=== PATIENT | male | born 1965 | race Caucasian/White ===

== ENCOUNTER → 2017-10-03 11:42 | Outpatient (CLI) | payer MEDICAID, SELFPAY ==
--- NOTE | 2017-10-03 11:54 | XR_ITS ---
XR chest 2V HISTORY: ITS.REASON: PNEUMONIA ORDERING PHYSICIAN: PADMINI Amor PATIENT AGE: 52 years COMPARISON: 01/08/2013 FINDINGS: Unremarkable cardiovascular structures. COPD with hyperinflation and coarsening of the bronchovascular markings. Patchy density is present in the left lower lobe consistent with pneumonia. There is a small area of increased markings in the right lung base probably related to summation artifact may be confirmed with follow-up. IMPRESSION: COPD with left lower lobe pneumonia. Suggest follow until clear in this patient which is a current smoker
== END ==
PROVIDERS: PCP Physician Assistant; Visit Provider Physician Assistant
DX: J18.9 Pneumonia, unspecified organism (principal)
CPT/HCPCS: 71046; 87070; 87205

== ENCOUNTER → 2018-09-11 11:43 | Outpatient (CLI) | payer BC, SELFPAY ==
--- NOTE | 2018-09-11 11:51 | XR_ITS ---
XR shoulder RT min 2V HISTORY: ITS.REASON: ACUTE PAIN OF RIGHT SHOULDER ORDERING PHYSICIAN: PADMINI Amor PATIENT AGE: 53 years Comparison: None FINDINGS: No fracture or dislocation. No lytic or blastic change. There is normal mineralization. The joint spaces are well-preserved. No significant degenerative/arthritic changes. No erosive changes evident. IMPRESSION: Negative, no acute finding
== END ==
PROVIDERS: PCP Physician Assistant; Visit Provider Physician Assistant
DX: M25.511 Pain in right shoulder (principal)
CPT/HCPCS: 73030

== ENCOUNTER 2021-08-28 14:31 | Emergency (ER) | payer BC, SELFPAY ==
[2021-08-28] VITALS (8 sets, daily range): BP systolic 136–188; BP diastolic 89–110; PULSE 10–101; RESP 12–19; TEMP 37.1; O2SAT 98–99; BMI 19.5
--- NOTE | 2021-08-28 14:48 | ECG_ITS ---
APPROVED REPORT Exam: Resting ECG HR:107 bpm ECG Measurements Heart Rate 107 AXES IL 112 P 84 QRSd 104 QRS 95 QT 334 T 78 QTc 397 Conclusion SINUS TACHYCARDIA WITH SHORT IL INTERVAL BORDERLINE RIGHT AXIS DEVIATION [QRS AXIS > 90] ABNORMAL RHYTHM ECG UNCONFIRMED REPORT Electronically signed by : John Cruz MD 08/29/2021 14:00:39
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
--- NOTE | 2021-08-28 15:17 | PC.NURSE ---
pt to CT with lead cytogenetic technologist via stretcher
[2021-08-28 15:25] LABS: Basophils # 0.1 K/mm3 (0-0.2); Eosinophils # 0.1 K/mm3 (0.0-0.4); Eosinophils % 0.9 % (0.1-12.0); Hematocrit 47.9 % (42.0-52.0); Hemoglobin 15.3 g/dL (14.1-18.0); Lymphocytes # 1.3 K/mm3 (0.7-4.5); Lymphocytes % 10.9 % (10-50); Mean Corpuscular HGB Conc 31.8 g/dL (31.8-35.4); Mean Corpuscular Hemoglobin 33.8 pg (27.0-31.2); Mean Corpuscular Volume 106.2 fl (80-94); Monocytes # 0.4 K/mm3 (0.1-1.0); Monocytes % 3.3 % (1.7-9.3); Neutrophils # 9.8 K/mm3 (1.8-7.8); Neutrophils % 83.7 % (37.0-80.0); Platelet Count 262 K/mm3 (142-424); Red Blood Count 4.51 M/mm3 (4.60-6.20); Red Cell Distribution Width 13.4 % (11.5-17.5); White Blood Count 11.7 K/mm3 (4.8-10.8)
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
[2021-08-28 15:44] LABS: Alanine Aminotransferase 25 U/L (12-78); Albumin Level 3.8 g/dl (3.5-5.0); Albumin/Globulin Ratio 1.3 (1.1-1.8); Alkaline Phosphatase 83 U/L (38-126); Anion Gap 10.8 mEq/L (5-15); Aspartate Amino Transferase 40 U/L (17-59); Bilirubin,Total 0.2 mg/dl (0.2-1.3); Blood Urea Nitrogen 5 mg/dl (9-20); Calcium 8.6 mg/dl (8.4-10.2); Carbon Dioxide 24 mmol/L (22.0-30.0); Chloride 104 mmol/L (98-107); Creatinine Clearance Estimated 105 mL/min (50-200); Estimated Glomerular Filt Rate 116 ml/min (>60); GFR (African American) 141 ML/MIN (>60); Glucose 109 mg/dl (74-100); Potassium 3.8 mmoL/L (3.5-5.1); Sodium 135 mmol/L (136-145); Total Protein,Serum 6.8 g/dl (6.3-8.2)
--- NOTE | 2021-08-28 15:53 | PC.NURSE ---
Pt returned from rad. Warm blankets provided. No other needs at this time.
--- NOTE | 2021-08-28 15:53 | PC.NURSE ---
pt returned from CT via stretcher with MYRTLE smith; family at BS
[2021-08-28 16:14] LABS: Ethyl Alcohol 69 mg/dl (0-10)
--- NOTE | 2021-08-28 16:31 | PC.NURSE ---
Notified Beatrice A, RN of patients BP being elevated
--- NOTE | 2021-08-28 16:51 | PC.NURSE ---
Went in and assessed pt and rechecked b/p. pt remains hypertensive, he advises he has a hx of hypertension and is suppose to be on b/p medicine but took himself off of it about 3 months ago. Pt denies any acute pain at this time and advises he feels fine other than some pressure in his head. MD notified of hypertension and pt hx no new orders at this time, he will be in to see him in a bit.
--- NOTE | 2021-08-28 17:01 | PC.NURSE ---
at bedside discussing CT results
--- NOTE | 2021-08-28 17:16 | PC.NURSE ---
contacted [facility] and was told by Colin pt had gotten metoprolol tartrate 50mg daily filled in 2019. pt and family state this is the same dose and it hasn't changed since then.
== END 2021-08-28 17:32 | disposition home or self-care (01) ==
PROVIDERS: Emergency Provider Emergency Medicine; PCP Family Medicine
DX: I10 Essential (primary) hypertension (principal); S20.311A Abrasion of right front wall of thorax, initial encounter; S20.211A Contusion of right front wall of thorax, initial encounter; V59.3XXA Occupant (driver) (passenger) of pick-up truck or van injured in unspecified nontraffic accident, initial encounter
CPT/HCPCS: 70450; 71275; 72125; 72170; 73000; 74177; 80053; 85025; 93005; 99285; Q9967

== ENCOUNTER → 2021-09-12 11:11 | Outpatient (CLI) | payer BC, SELFPAY ==
--- NOTE | 2021-09-12 11:25 | ECG_ITS ---
APPROVED REPORT Exam: Resting ECG HR:85 bpm ECG Measurements Heart Rate 85 AXES IL 127 P 56 QRSd 98 QRS 87 QT 325 T 71 QTc 368 Conclusion SINUS RHYTHM WITH SINUS ARRHYTHMIA NORMAL ECG UNCONFIRMED REPORT Electronically signed by : John Cruz MD 09/13/2021 14:16:10
== END ==
PROVIDERS: PCP Nurse Practitioner Family; Visit Provider Nurse Practitioner Family
DX: R07.9 Chest pain, unspecified (principal)
CPT/HCPCS: 93005

== ENCOUNTER → 2022-04-17 10:33 | Outpatient (CLI) | payer BC, SELFPAY ==
--- NOTE | 2022-04-17 10:42 | XR_ITS ---
FINAL REPORT CLINICAL HISTORY: Right foot pain FINDINGS: AP, oblique and lateral views of the right foot were obtained. There is no prior exam for comparison. There is no acute fracture or dislocation. There is advanced degenerative disease at the 1st tarsometatarsal joint. The remaining joint spaces are preserved. Soft tissues are normal. IMPRESSION: No acute osseous abnormality of the right foot. Prominent degenerative disease of the 1st tarsometatarsal joint. Reviewed, Interpreted and Dictated by Ciera Moses MD Transcribed by Janet Leal Authenticated and [facility]
--- NOTE | 2022-04-17 10:42 | XR_ITS ---
FINAL REPORT CLINICAL HISTORY: Left foot pain FINDINGS: AP, oblique and lateral views of the left foot were obtained. There is no prior exam for comparison. There is no acute fracture or dislocation. The joint spaces are preserved. Soft tissues are normal. IMPRESSION: No acute osseous abnormality of the left foot. Reviewed, Interpreted and Dictated by Ciera Moses MD Transcribed by Janet Leal Authenticated and [facility]
== END ==
PROVIDERS: PCP Family Medicine; Visit Provider Nurse Practitioner Family
DX: M79.671 Pain in right foot (principal); M79.672 Pain in left foot; B35.1 Tinea unguium
CPT/HCPCS: 73630; 87102; 87206; 87220

== ENCOUNTER → 2022-04-17 23:44 | Outpatient (CLI) | payer BC, SELFPAY | PROVIDERS: PCP Family Medicine; Visit Provider Nurse Practitioner Family | DX: M79.671 Pain in right foot (principal) ==

== ENCOUNTER → 2022-09-25 16:27 | Outpatient (CLI) | payer BC, SELFPAY ==
--- NOTE | 2022-09-25 16:32 | XR_ITS ---
FINAL REPORT CLINICAL HISTORY: RIGHT LEG PAIN COMPARISON: None FINDINGS: Two views of the right femur were obtained. There is no acute fracture or dislocation. There are mild hip and knee degenerative changes. Mild vascular calcifications. There is no acute soft tissue abnormality. IMPRESSION: Degenerative changes without acute bony abnormality. Reviewed, Interpreted and Dictated by Job Lima III, MD Transcribed by Heather Harden Authenticated and [facility]
== END ==
LOC: RAD 16:27
PROVIDERS: PCP Nurse Practitioner Family; Visit Provider Nurse Practitioner Family
DX: M79.604 Pain in right leg (principal)
CPT/HCPCS: 73552

== ENCOUNTER 2022-10-18 10:12 | Emergency (ER) | payer BC, SELFPAY ==
[2022-10-18 10:21] VITALS: BP 173/90; PULSE 79; RESP 14; TEMP 36.5; O2SAT 97; BMI 20.2
--- NOTE | 2022-10-18 10:48 | HMH.EDGENADL ---
Discharge Plan Disposition Patient Disposition: Home, Self-Care Prescriptions Prescriptions: New epinephrine [EpiPen 2-Anupam] 0.3 mg/0.3 mL auto-injector 0.3 mg IM Q10M PRN (Reason: anaphylaxis) Qty: 2 0RF Rx Instructions: for 2 doses No Action metoprolol succinate 50 mg tablet extended release 24 hr 50 mg PO Patient Comments: TAKE ONE TABLET BY MOUTH EVERY DAY mecobalamin (vitamin B12) [B12 Active] 1,000 mcg tablet,chewable 1,000 mcg PO DAILY Referrals Follow up/Referrals: Zulema Granados [Primary Care Provider] - See instructions Activity Restrictions/Add. Instructions Additional Instructions/Restrictions: Call your family doctor to establish care for this visit to the emergency department and schedule follow-up within 48 hours to ensure improvement. If you have any worsening of your condition or any other concerning signs or symptoms, return to the emergency department or your primary care doctor for further evaluation. Discontinue taking tramadol. EpiPen has been sent to clinic pharmacy. If you have swelling of your tongue or lips, difficulty breathing, whistling sound in your throat, wheezing, nausea or vomiting, sweating, diffuse rash/hives, lightheadedness, chest pain, shortness of breath, or any other concerns, use EpiPen in outer thigh and immediately return to the ER promptly for further evaluation. These are signs of anaphylaxis. Benadryl 25 mg every 6 hours for the next 24 hours, or cetirizine (Zyrtec)/Claritin to help with symptoms. Clinical Impressions Clinical Impression: Allergic reaction Qualifiers: Encounter type: initial encounter Qualified Code(s): T78.40XA - Allergy, unspecified, initial encounter Instructions Patient Instructions: DI for Skin Abscess Discharge ED Provider: Timothy Lowe General Adult HPI General Chief complaint: Skin/Abscess/Foreign Body Stated complaint: itching, hives, blood pressure up Time Seen by Provider: 10/18/22 10:17 Mode of Arrival: Ambulatory Source of Information: Patient Limitations: No Limitations Description of Symptoms (Recalled from ER Triage Doc. by RN): 57 yo M presents to ED with c/o rash, itching, high blood pressure. pt reports that he got teeth pulled yesterday and was prescribed tramadol. pt reports he has taken 2-3 doses. pt has never taken tramadol before. pt reports he began having itching and rash last night. and this am when he got home from work he checked his blood pressure was elevated at 151/97. History of Present Illness HPI narrative: Is a 57-year-old male with history of COPD currently still smoking, poor dentition status postextraction and expecting dentures presenting with rash. Patient states that he had final 2 teeth extracted 1 day prior to arrival. Was given tramadol over the process of extraction. Initially took tramadol 1 week prior to arrival did not have symptoms. Took tramadol 1 night prior to arrival after extraction. Started having diffuse rash on trunk, chest/back/upper extremities and proximal lower extremities with associated redness. Continues to get worse. Denies nausea, vomiting, diarrhea, GI upset, wheezing, stridor, difficulty breathing, difficulty swallowing, swelling of the tongue or lips. States he felt lightheaded once this morning, but is not currently feeling lightheaded. Presents to the ED for further evaluation Related Data Home Medications Medication Instructions Recorded Confirmed mecobalamin (vitamin B12) 1,000 1,000 mcg PO DAILY 04/17/22 04/17/22 mcg chewable tablet (B12 Active) metoprolol succinate 50 mg 50 mg PO 04/17/22 04/17/22 tablet,extended release 24 hr Previous Rx's Medication Instructions Recorded epinephrine 0.3 mg/0.3 mL 0.3 mg (0.3 mL) IM Q10M PRN 10/18/22 injection, auto-injector (EpiPen anaphylaxis #2 ea 2-Anupam) Allergies Allergy/AdvReac Type Severity Reaction Status Date / Time iopanoic acid Allergy Verified 04/17/22 09:46 [From Tel
[2022-10-18 11:00] VITALS: BP 167/80; PULSE 82; RESP 16; O2SAT 98
[2022-10-18 11:07] VITALS: BP 160/101; PULSE 69; RESP 16; TEMP 36.7
== END 2022-10-18 11:09 | disposition home or self-care (01) ==
PROVIDERS: Emergency Provider Emergency Medicine; PCP Nurse Practitioner Family
DX: L50.9 Urticaria, unspecified (principal); T40.425A Adverse effect of tramadol, initial encounter; J44.9 Chronic obstructive pulmonary disease, unspecified; F17.200 Nicotine dependence, unspecified, uncomplicated
CPT/HCPCS: 99283

== ENCOUNTER 2022-10-19 16:42 | Emergency (ER) | payer BC, SELFPAY ==
--- NOTE | 2022-10-19 16:33 | ECG_ITS ---
APPROVED REPORT Exam: Resting ECG HR:84 bpm ECG Measurements Heart Rate 84 AXES NC 141 P 76 QRSd 97 QRS 91 QT 355 T 67 QTc 397 Conclusion SINUS RHYTHM BORDERLINE RIGHT AXIS DEVIATION [QRS AXIS > 90] BORDERLINE ECG UNCONFIRMED REPORT Electronically signed by : John Cruz MD 10/23/2022 15:59:41
[2022-10-19 16:42] VITALS: BP 182/102; PULSE 84; RESP 19; TEMP 36.8; O2SAT 99; BMI 19.6
--- NOTE | 2022-10-19 17:08 | HMH.EDGENADL ---
Discharge Plan Disposition Chief Complaint: Allergic Reaction Prescriptions Prescriptions: No Action metoprolol succinate 50 mg tablet extended release 24 hr 50 mg PO Patient Comments: TAKE ONE TABLET BY MOUTH EVERY DAY mecobalamin (vitamin B12) [B12 Active] 1,000 mcg tablet,chewable 1,000 mcg PO DAILY epinephrine [EpiPen 2-Anupam] 0.3 mg/0.3 mL auto-injector 0.3 mg IM Q10M PRN (Reason: anaphylaxis) Qty: 2 0RF Rx Instructions: for 2 doses Referrals Follow up/Referrals: Bakari Williamson MD [Staff Physician] - See instructions Activity Restrictions/Add. Instructions Additional Instructions/Restrictions: Follow-up with Dr. Williamson for further evaluation of your syncopal episode. You may need a Holter monitor and/or an ultrasound of your heart to evaluate for possible structural heart disease. Return with any worsening symptoms. Regarding your hives return with any shortness of breath swelling in your tongue or other concerns. Clinical Impressions Clinical Impression: Syncope, Urticarial rash Discharge ED Provider: Jaycee Moscoso General Adult HPI General Chief complaint: Allergic Reaction Stated complaint: Syncope Time Seen by Provider: 10/19/22 17:00 History of Present Illness HPI narrative: 57-year-old male here with a syncopal episode. States he was here yesterday in the emergency department after being on tramadol and developing an urticarial rash without any evidence of anaphylaxis and was given Benadryl. He was discharged in a stable condition with back to work today at [employer] and they told him he had to go home because he was on Benadryl. He was feeling little bit lightheaded and dizzy. Went to go care for his father and his father stated that he had a syncopal episode completely lost consciousness. The patient had preceding prodrome of feeling lightheaded. No chest pain or shortness of breath this was not sudden. He has not had any melena any history of heart failure or any history of arrhythmia no nausea vomiting diarrhea or any other significant medical problems that he is aware of other than hypertension. He is currently without symptoms was brought in by EMS and has been stable. Still has the rash that he states is gotten worse and it is pruritic in nature and diffuse and changing locations no significant wheezing tongue swelling difficulty breathing or GI symptoms. Related Data Home Medications Medication Instructions Recorded Confirmed mecobalamin (vitamin B12) 1,000 1,000 mcg PO DAILY 04/17/22 04/17/22 mcg chewable tablet (B12 Active) metoprolol succinate 50 mg 50 mg PO 04/17/22 04/17/22 tablet,extended release 24 hr Previous Rx's Medication Instructions Recorded epinephrine 0.3 mg/0.3 mL 0.3 mg (0.3 mL) IM Q10M PRN 10/18/22 injection, auto-injector (EpiPen anaphylaxis #2 ea 2-Anupam) Allergies Allergy/AdvReac Type Severity Reaction Status Date / Time iopanoic acid Allergy Verified 04/17/22 09:46 [From [employer]] neosporin Allergy Mild Unknown Uncoded 04/17/22 09:46 allergy reaction [facility] Disclaimer: The information contained in this section may have been updated after the patient was seen, as this information can be updated by other users. Social History (Updated 04/17/22 @ 09:48 by NEWTON Mehta) Smoking Status: Current every day smoker alcohol intake: never current occupational status: employed Travel in the last 8 weeks: None ROS Obtained: Yes All systems reviewed & no additional complaints except as documented Physical Exam General General appearance: alert and in no apparent distress Respiratory Respiratory exam: Present normal lung sounds bilaterally; Absent respiratory distress Cardiovascular Cardiovascular exam: Present regular rate; Absent tachycardia Neurological Exam Neurological exam: Present alert and oriented X3 Skin Skin exam: Present other (Diffuse urticarial rash there is no ev
--- NOTE | 2022-10-19 17:25 | PC.NURSE ---
Rounded on patient; pt re-adjusted in bed for comfort and ice water given that was okay'd by . Call denton within reach
[2022-10-19 17:35] LABS: Basophils % 0.3 % (0.1-2.0); Eosinophils # 0.4 K/mm3 (0.0-0.4); Eosinophils % 4.3 % (0.1-12.0); Hematocrit 52.2 % (42.0-52.0); Hemoglobin 17.2 g/dL (14.1-18.0); Lymphocytes # 1.6 K/mm3 (0.7-4.5); Lymphocytes % 18.5 % (10-50); Mean Corpuscular Hemoglobin 33.4 pg (27.0-31.2); Mean Corpuscular Volume 101.4 fl (80-94); Mean Platelet Volume 8.4 fl (7.4-10.4); Monocytes # 0.6 K/mm3 (0.1-1.0); Neutrophils # 5.9 K/mm3 (1.8-7.8); Neutrophils % 69.9 % (37.0-80.0); Platelet Count 313 K/mm3 (142-424); Red Blood Count 5.15 M/mm3 (4.60-6.20); Red Cell Distribution Width 12.8 % (11.5-17.5); White Blood Count 8.4 K/mm3 (4.8-10.8)
[2022-10-19 18:04] LABS: Alanine Aminotransferase 25 U/L (12-78); Albumin/Globulin Ratio 1.3 (1.1-1.8); Alkaline Phosphatase 92 U/L (38-126); Anion Gap 13.1 mEq/L (5-15); Aspartate Amino Transferase 35 U/L (17-59); Bilirubin,Total 0.7 mg/dl (0.2-1.3); Blood Urea Nitrogen 8 mg/dl (9-20); Carbon Dioxide 26 mmol/L (22.0-30.0); Chloride 99 mmol/L (98-107); Creatinine Clearance Estimated 73 mL/min (50-200); Estimated Glomerular Filt Rate 77 ml/min (>60); GFR (African American) 93 ML/MIN (>60); Globulin 3.1 g/dL (1.3-3.2); Glucose 107 mg/dl (74-100); Potassium 4.1 mmoL/L (3.5-5.1); Sodium 134 mmol/L (136-145); Total Protein,Serum 7.1 g/dl (6.3-8.2)
[2022-10-19 18:17] LABS: Troponin I < 0.01 ng/ml (0.00-0.034)
[2022-10-19 18:34] LABS: Thyroid Stimulating Hormone 1.42 uIU/mL (0.465-4.68)
[2022-10-19 19:04] VITALS: BP 176/89; PULSE 78; RESP 18; TEMP 36.7; O2SAT 99
== END 2022-10-19 19:07 | disposition home or self-care (01) ==
PROVIDERS: Emergency Provider Student in an Organized Health Care Education/Training Program; PCP Family Medicine
DX: R55 Syncope and collapse (principal); L50.9 Urticaria, unspecified; F17.200 Nicotine dependence, unspecified, uncomplicated
CPT/HCPCS: 80053; 83735; 84443; 84484; 85025; 93005; 96361; 96374; 99285

== ENCOUNTER → 2022-10-20 11:26 | Outpatient (CLI) | payer BC, SELFPAY | LOC: RT 11:28 | PROVIDERS: PCP Family Medicine; Visit Provider Family Medicine | DX: R55 Syncope and collapse (principal) | CPT/HCPCS: 93225 ==

== ENCOUNTER → 2022-10-24 09:14 | Outpatient (CLI) | payer BC, SELFPAY ==
[2022-10-24 10:13] LABS: Basophils % 0.5 % (0.1-2.0); Eosinophils # 0.2 K/mm3 (0.0-0.4); Eosinophils % 1.6 % (0.1-12.0); Hematocrit 54.4 % (42.0-52.0); Hemoglobin 17.3 g/dL (14.1-18.0); Lymphocytes # 1.7 K/mm3 (0.7-4.5); Lymphocytes % 18.6 % (10-50); Mean Corpuscular HGB Conc 31.8 g/dL (31.8-35.4); Mean Corpuscular Hemoglobin 33.2 pg (27.0-31.2); Mean Corpuscular Volume 104.6 fl (80-94); Mean Platelet Volume 7.5 fl (7.4-10.4); Monocytes # 0.5 K/mm3 (0.1-1.0); Monocytes % 5.2 % (1.7-9.3); Neutrophils # 6.8 K/mm3 (1.8-7.8); Neutrophils % 74.1 % (37.0-80.0); Platelet Count 318 K/mm3 (142-424); Red Blood Count 5.21 M/mm3 (4.60-6.20); Red Cell Distribution Width 12.8 % (11.5-17.5); White Blood Count 9.1 K/mm3 (4.8-10.8)
[2022-10-24 10:55] LABS: Chloride 104 mmol/L (98-107); Potassium 4.5 mmoL/L (3.5-5.1); Sodium 137 mmol/L (136-145)
[2022-10-24 10:57] LABS: Alanine Aminotransferase 38 U/L (12-78); Aspartate Amino Transferase 40 U/L (17-59); Bilirubin,Unconjugated 0.2 mg/dL (0.0-1.1); Blood Urea Nitrogen 12 mg/dl (9-20); Estimated Glomerular Filt Rate 116 ml/min (>60); GFR (African American) 140 ML/MIN (>60)
[2022-10-24 10:58] LABS: Alkaline Phosphatase 91 U/L (38-126); Anion Gap 11.5 mEq/L (5-15); Bilirubin,Direct 0.3 mg/dl (0.0-0.4); Bilirubin,Indirect 0.2 mg/dL (0.0-0.9); Bilirubin,Total 0.5 mg/dl (0.2-1.3); Calcium 9.8 mg/dl (8.4-10.2); Carbon Dioxide 26 mmol/L (22.0-30.0); Cholesterol 236 mg/dl (140-200); Glucose 114 mg/dl (74-100); Magnesium 2.1 mg/dl (1.6-2.3); Total Protein,Serum 7.3 g/dl (6.3-8.2); Triglycerides 69 mg/dl (30-150); VLDL Cholesterol 14 mg/dL (0-40)
[2022-10-24 10:59] LABS: Chol/HDL Ratio 2.9 (1-3.5); HDL Cholesterol 82 mg/dl (40-60)
[2022-10-24 11:09] LABS: Direct LDL Cholesterol 131.11 mg/dL (100-129)
[2022-10-24 11:15] LABS: Free T4 (Free Thyroxine) 0.86 ng/dl (0.78-2.19)
[2022-10-24 11:28] LABS: Thyroid Stimulating Hormone 2.72 uIU/mL (0.465-4.68)
== END ==
LOC: RT 09:14
PROVIDERS: PCP Family Medicine; Visit Provider Nurse Practitioner
DX: I20.8 Other forms of angina pectoris (principal); R55 Syncope and collapse; I10 Essential (primary) hypertension
CPT/HCPCS: 36415; 80048; 80061; 80076; 83735; 84439; 84443; 85025; 93270

== ENCOUNTER → 2022-10-27 12:45 | Outpatient (CLI) | payer BC, SELFPAY ==
--- NOTE | 2022-10-27 | CA_ITS ---
APPROVED REPORT Exam: Pharmacologic Technologist: Sarah Ewing, Ht: 5 ft 11 in Wt: 136 lbs BSA: 1.79 m2 HR: 75 bpm BP: 140/81 mmHg Rhythm: NSR, RIGHTWARD AXIS Medical History Medical History: HTN Medications: Metoprolol Succinate,,,,, Vit B12,,,,, Epinephrine,,,,, Allergies: LOPANOIC ACID, NEOSPORIN Cardiac Risk Factors: HTN, Smoking Stress Test Details Test: LEXISCAN HR Resting HR: 79 bpm Max Heart Rate (APMHR): 162 bpm Max HR Achieved: 101 bpm Target HR (85% APMHR): 138 bpm % of APMHR: 62 Recovery HR: 80 bpm BP Resting BP: 140/81 mmHg Max BP: 140/81 mmHg Recovery BP: 135.0/74.0 mmHg ECG Resting ECG: NSR, RIGHTWARD AXIS Stress ECG: NO CHANGE Arrhythmia: NONE Clinical Exercise duration: 04:01 min Highest Stage Achieved: Stress ECG Conclusion PT HAD MILD BRIEF CHEST PRESSURE. HEAD DISCOMFORT. MILD SOA NO SIGNIFICANT ST CHANGES UNREMARKABLE LEXISCAN STRESS MYOVIEW IMAGES REPORTED SEPARATELY Test Summary REST . . . . . . . Resting REST 02:57 . . 79 . 140/ 81 . . Stage 1 01:00 . . 95 . . . . Stage 2 01:00 . . 95 . 116/ 71 . . Stage 3 01:00 . . 93 . 128/ 68 . . Stage 4 01:00 . . 96 . 106/ 64 . . Stage 4 01:01 . . 96 . 106/ 64 . Stop exercise at 04:01 RECOVERY 01:00 . . 97 . . . . RECOVERY 02:00 . . 89 . 138/ 78 . . RECOVERY 03:00 . . 88 . 135/ 74 . . RECOVERY 03:25 . . 91 . 135/ 74 . . Electronically signed by : Jeni Turner, 11/02/2022 12:51:57
--- NOTE | 2022-10-27 12:45 | NM_ITS ---
APPROVED REPORT Exam: Nuclear Stress Test Indication: HTN, TOB USE, FM HX, C.P., SOB, SYNCOPE, FATIGUE Patient Location: Outpatient Stress Tech: Sarah Bates [place] Tech:BASHIR Hamilton RT(R)(N) Ht: 5 ft 11 in Wt: 140 lbs HR: 79 bpm BP: 140/81 mmHg BSA: 1.81 m2 Rhythm: NSR TID: 1.11 BMI: 19.5 History: HTN, TOB USE, FM HX, C.P., SOB, SYNCOPE, FATIGUE Procedure: Patient received 0.4 mg of intravenous AdenosineLexiscan, resting heart rate 79 bpm, resting blood pressure 140/81 mmHg, with Lexiscan maximum heart rate achieved was 96 bpm which is % of the maximum predicted heart rate and blood pressure was 106/64 mmHg. With Lexiscan, patient denied any complaint of chest pain. Cardiac Stress and Resting SPECT Images: Cardiac Stress and Resting SPECT images were obtained using technetium 99m Myoview 31.4 mCi stress and 10.66 mCi at rest. Resting and stress imaging in supine position demonstrate a large sized, moderate, fixed perfusion defect in the inferior LV wall. This is no longer visualized with prone stress imaging. This is suggestive of diaphragmatic attenuation. Gated imaging demonstrates mild reduction in global and regional LV systolic function. LVEF is calculated at 44%. Conclusion: Diaphragmatic attenuation is present. No definite evidence of fixed or reversible perfusion defects. Gated imaging demonstrates mild reduction in global and regional LV systolic function. LVEF is calculated at 44%. Electronically signed by : Jeni Turner, 11/02/2022 13:05:33
--- NOTE | 2022-10-27 15:55 | CA_ITS ---
APPROVED REPORT EXAM: Comprehensive 2D, Doppler, and color-flow Echocardiogram Nuclear Waste Management Engineer: Adriane Lindsey RVT Ht: 5 ft 11 in Wt: 136lbs BSA: 1.79 BP: 186/110 mmHg Indications: SYNCOPE,CP,HTN,SMOKER 2D Dimensions LVOT 2.11 cm (M/F) 1.5-2.5 LA Volume 35.90 mL LA Volume Index 20.06 mL/m2 (M/F) 16-34 M-Mode Dimensions RVDd 2.73 cm (0.9-2.6) LA Diam 3.47 cm (1.9-4.0) LVDd 4.93 cm (3.5-5.7) Ao Diam 2.94 cm (2.0-3.7) LVDs 3.05 cm (3.5-5.7) IVSd 0.59 cm (0.6-1.1) PWd 0.72 cm (0.6-1.1) EF (Teich) 68.20% FS 38.10% EDV (Teich) 114.40 mL TAPSE 2.51 (<1.7) ESV (Teich) 36.40 mL LV Diastology E Decel Time 277.00 (160-240 msec) E/A Ratio 0.6 MED E' 4.70 (< 7 cm/sec) E'/MED E' Ratio 11.38 (>14) LAT E' 7.60 (<10 cm/sec) E/LAT E' Ratio 7.04 (>14) Aortic Valve AO Peak GR. 5.90 mmHg Mitral Valve MV E Max Nadeem. 54.00 (40-130 cm/s) MV A Velocity 86.00 (40-130 cm/s) E/A Ratio 0.62 MV Decel. Time 277.00 (160-240 ms) MV PHT 81.00 ms Pulmonary Valve PV Peak Velocity 78.00 (50-150 cm/s) Left Ventricle The left ventricle is normal size. The left ventricular systolic function is normal. The left ventricular ejection fraction is within the normal range. Proximal septal thickening is present. There is normal LV segmental wall motion. The left ventricular diastolic function is normal. LVEF is 55% Right Ventricle The right ventricle is normal size. The right ventricular systolic function is normal. Atria The left atrium size is normal. The right atrium size is normal. There is no Doppler evidence of interatrial shunt. Aortic Valve The aortic valve is mildly thickened. There is no aortic valvular stenosis. No aortic regurgitation is present. Mitral Valve The mitral valve is normal in structure. No evidence of mitral valve stenosis. Mild mitral regurgitation. Tricuspid Valve The tricuspid valve leaflets are thin and pliable. Trace tricuspid regurgitation. RVSP is normal. Pulmonic Valve The pulmonary valve is normal in structure. Trace pulmonic regurgitation. Great Vessels The aortic root is normal in size. The ascending aorta is normal in size. IVC is normal in size and collapses >50% with inspiration. Pericardium There is no pericardial effusion. Other Information Study Quality: Fair Conclusion Normal biventricular systolic function. Mild MR. Electronically signed by : Jeni Turner, 11/02/2022 17:02:53
== END ==
LOC: RAD 12:45
PROVIDERS: PCP Family Medicine; Visit Provider Nurse Practitioner
DX: I10 Essential (primary) hypertension (principal); I20.9 Angina pectoris, unspecified; R55 Syncope and collapse; Z72.0 Tobacco use
CPT/HCPCS: 78452; 93017; 93306; A9502; J2785

== ENCOUNTER → 2022-12-05 12:36 | Outpatient (CLI) | payer BC, SELFPAY ==
[2022-12-05 13:38] LABS: Blood Urea Nitrogen 6 mg/dl (9-20); Estimated Glomerular Filt Rate 138 ml/min (>60); GFR (African American) 167 ML/MIN (>60)
== END ==
PROVIDERS: PCP Family Medicine; Visit Provider Internal Medicine
DX: I10 Essential (primary) hypertension (principal); Z01.812 Encounter for preprocedural laboratory examination
CPT/HCPCS: 36415; 82565; 84520

== ENCOUNTER 2022-12-06 12:12 | Outpatient (CLI) | payer BC, SELFPAY ==
[2022-12-06] VITALS (9 sets, daily range): BP systolic 115–182; BP diastolic 68–95; PULSE 55–76; RESP 16–18; TEMP 36.2; O2SAT 96–98
--- NOTE | 2022-12-06 12:13 | CT_ITS ---
APPROVED REPORT Retort Setter: CLINICAL INDICATION Chest Pain TECHNIQUE Image Acquisition: A 128 slice MDCT scanner ([employer] View) was used for data acquisition. A noncontrast coronary calcium scan was performed. A CT attenuation threshold of 130 Hounsfield units (HU) was used for the detection of calcium in contiguous voxels of 1 sq mm in area to be counted as individual lesions. Bolus tracking in the ascending aorta with a threshold of 180 HU was performed. Immediately afterwards, ECG synchronized cardiac CT was then performed from the cardiac base to apex using retrospective gating with ECG tube current modulation. A total of 85 mL of Isovue 370 mg/mL contrast medium was administered at 5 mL/sec followed by a saline flush using a biphasic injection protocol. A tube voltage of 120 KVp was used. The patient received the following medications prior to the cardiac CT. 100 mg of oral metoprolol 5 mg of intravenous metoprolol 0.8 mg of sublingual nitroglycerin The average heart rate at the time of acquisition was 61 bpm and regular. Image Reconstruction Transaxial images were reconstructed at 0.67 mm slide thickness. Data was reviewed interactively on an advanced workstation capable of 2 and 3-dimensional displays in all conventional reconstruction formats, including multiplanar reformations, maximum intensity projections, curved multiplanar reformations, and volume rendered reconstructions. When applicable, selected routine images describing the relevant coronary anatomy and pathology were saved and sent to PACS. Complications None Technical Quality Overall image quality was good. Coronary artery opacification was adequate. Total DLP (Dose-Length Product) is 1331.2 mGy-cm. The reported value represents the total of one or more individual components during the CT acquisition of this date and at this time, and as such, the same value may appear in more than one CT report depending on the interpreting/reporting physicians. COMPARISON None FINDINGS CT Coronary Calcium Scoring LMA (Left Main Artery) = 22 LAD (Left Anterior Descending) = 82 LCX (Left Coronary Circumflex) = 6 RCA (Right Coronary Artery) = 31 Total Calcium Score = 141 using the AJ-130 method. The observed calcium score of 141 is at 78th percentile for subjects of the same age, sex, and race/ethnicity. The interpretation of the calcium heart score is based on the following continuum*: 0 = no calcified plaque detected (risk of coronary artery disease is very low ??? less than 5%) 1-10 = calcium detected in extremely minimal levels (risk of coronary diseases is still low ??? less than 10%) 11-100 = mild levels of plaque detected with certainty (mild or minimal narrowing of heart arteries is likely) 101-400 = definite,at least moderate levels of plaque detected (relatively high risk of a heart attack within 3-5 years) >401-999 = extensive levels of plaque detected (high risk of heart attack, high levels of vascular disease are present, high likelihood of at least one significant coronary narrowing) *The calcium heart score quantifies the burden of coronary calcification/plaque in the coronary arteries. The calcium heart score is not able to evaluate the presence or burden of non-calcified (i.e. soft) plaque. There is calcification in the ascending and descending aorta, but no identifiable calcification in the aortic valve, mitral annulus or mitral valve, pericardium, or myocardium. Coronary CT Angiography Coronaries have normal origin and proximal course. The coronary arterial system is right dominant. Note: Stenosis is reported as maximum percentage diameter stenosis. Quantitative Stenosis Grading: Left Main (LM): The left main originates normally fro
== END 2022-12-06 15:01 | disposition home or self-care (01) ==
PROVIDERS: PCP Family Medicine; Visit Provider Nurse Practitioner Family
DX: I20.89 Other forms of angina pectoris (principal); R94.31 Abnormal electrocardiogram [ECG] [EKG]
CPT/HCPCS: 75574; Q9967

== ENCOUNTER 2022-12-25 08:44 | Day surgery (SDC) | payer BC, SELFPAY ==
[2022-12-25] VITALS (15 sets, daily range): BP systolic 93–167; BP diastolic 52–96; PULSE 52–103; RESP 13–19; O2SAT 67–98; BMI 19.6
--- NOTE | 2022-12-25 07:44 | IR_ITS ---
APPROVED REPORT Patient Location: Outpatient Can Dryer: BASHIR Francois RT (R) PROCEDURES Left heart catheterization Left ventriculogram Selective coronary angiogram INDICATION Abnormal CCTA, Angina pectoris, Known coronary artery disease, Informed consent was obtained prior to the procedure. COMPLICATIONS None Estimated Blood Loss: Less than 10 mls TECHNIQUE One percent lidocaine used to anesthetize the right anterior aspect of the wrist. The right radial artery was accessed via the Seldinger technique. A 6 Egyptian sheath was placed in the right radial artery. 2.5 mg of Verapamil, 800 mcg of nitroglycerin, 1mg Lidocaine and 5000 U Heparin were given through the arterial sheath. The papa catheter was also used to perform left heart catheterization, left ventriculogram and selective coronary angiogram. At the end of the procedure the sheath was removed good hemostasis was achieved using Traclet band, patient was transferred to the postop holding area in stable condition. ANGIOGRAPHIC RESULTS The left main artery Normal The left anterior descending artery Has an ostial concentric 80% stenosis with a mid vessel eccentric 50% stenosis The circumflex artery Is nondominant and has a proximal concentric 70% stenosis The right coronary artery Is large and dominant and has a long proximal concentric 60 to 70% stenosis The GALLOWAY ventriculogram reveals Preserved at 55% The left ventricular end-diastolic pressure 10 mmHg IMPRESSION Severe three-vessel coronary artery disease most notably with severe ostial LAD stenosis Preserved ejection fraction Normal left ventricular end-diastolic pressure PLAN 1. Referral to [facility] for coronary bypass surgery 2. Start high intensity statin 3. Continue aspirin 4. Standard therapy for ischemic heart disease Electronically signed by : Bakari Williamson MD 12/25/2022 10:12:42
[2022-12-25 09:24] LABS: Basophils # 0.1 K/mm3 (0-0.2); Basophils % 0.7 % (0.1-2.0); Eosinophils # 0.3 K/mm3 (0.0-0.4); Eosinophils % 4.2 % (0.1-12.0); Hematocrit 47.8 % (42.0-52.0); Hemoglobin 16.6 g/dL (14.1-18.0); Lymphocytes # 1.9 K/mm3 (0.7-4.5); Lymphocytes % 22.9 % (10-50); Mean Corpuscular HGB Conc 34.7 g/dL (31.8-35.4); Mean Corpuscular Hemoglobin 35.4 pg (27.0-31.2); Mean Corpuscular Volume 102.1 fl (80-94); Mean Platelet Volume 7.8 fl (7.4-10.4); Monocytes # 0.6 K/mm3 (0.1-1.0); Monocytes % 7.2 % (1.7-9.3); Neutrophils # 5.3 K/mm3 (1.8-7.8); Neutrophils % 64.9 % (37.0-80.0); Platelet Count 270 K/mm3 (142-424); Red Blood Count 4.69 M/mm3 (4.60-6.20); Red Cell Distribution Width 13.3 % (11.5-17.5); White Blood Count 8.1 K/mm3 (4.8-10.8)
[2022-12-25 09:46] LABS: Anion Gap 12.3 mEq/L (5-15); Blood Urea Nitrogen 5 mg/dl (9-20); Calcium 9.2 mg/dl (8.4-10.2); Carbon Dioxide 26 mmol/L (22.0-30.0); Chloride 99 mmol/L (98-107); Creatinine Clearance Estimated 121 mL/min (50-200); Estimated Glomerular Filt Rate 138 ml/min (>60); GFR (African American) 167 ML/MIN (>60); Glucose 105 mg/dl (74-100); Potassium 4.3 mmoL/L (3.5-5.1); Sodium 133 mmol/L (136-145)
== END 2022-12-25 13:38 | disposition home or self-care (01) ==
PROVIDERS: PCP Family Medicine; Visit Provider Internal Medicine
DX: I25.118 Atherosclerotic heart disease of native coronary artery with other forms of angina pectoris (principal); I10 Essential (primary) hypertension; R94.31 Abnormal electrocardiogram [ECG] [EKG]; F17.210 Nicotine dependence, cigarettes, uncomplicated; Z79.899 Other long term (current) drug therapy
CPT/HCPCS: 80048; 85025; 93458; 99152; 99153; C1725; C1769; J1644; Q9967

== ENCOUNTER 2023-03-08 12:32 | Outpatient (RCR) | payer BC, SELFPAY | END 2023-03-30 14:00 | disposition home or self-care (01) | LOC: PT 12:32 | PROVIDERS: Visit Provider Thoracic Surgery (Cardiothoracic Vascular Surgery) | DX: I25.118 Atherosclerotic heart disease of native coronary artery with other forms of angina pectoris (principal) | CPT/HCPCS: 93798 ==

== ENCOUNTER 2023-06-05 14:25 | Outpatient (CLI) | payer BC, SELFPAY ==
--- NOTE | 2023-06-05 14:34 | CT_ITS ---
FINAL REPORT TECHNIQUE: Thin section axial images were obtained from the lung apices to the upper abdomen by computed tomography. Reformatted images were obtained and reviewed. This study was performed with techniques to keep radiation doses al low as reasonably achievable (ALARA). Individualized dose reduction techniques using automated exposure control or adjustment of mA and/or kV according to the patient's size were employed. CLINICAL HISTORY: lung cancer screening. Quit smoking Mar 2023- smoked 1 PPD for 43 yrs. Emphysema. Exposure to second hand smoke. COMPARISON: None FINDINGS: CHEST CT LOW DOSE 58-year-old male, quit smoking 1 month ago, 71-nymo-xrsa history. CTDI vol (mGy): 2.9 DLP (mGy-cm): 117.24 There is no axillary adenopathy. There is no mediastinal or hilar mass or adenopathy. The heart is normal in size. There is no pericardial or pleural effusion. There is mild emphysema and mild pulmonary scarring. Lung window images demonstrate multiple small nodules. There is a 4 mm nodule in the right upper lobe best seen on image #31 of series 4. There are multiple nodules in the posterior left lower lobe measuring up to 5 mm in size, seen on image #49 of series #4. There is a 5 mm nodule along the lateral margin of the major fissure, best seen on image #49 of series 4. There is another 5 mm nodule in the superior segment of the left lower lobe best seen on image #36 of series 4.. Limited images of the upper abdomen are unremarkable. IMPRESSION: Lung-RADS category 2. Recommend 12 month follow up low dose chest CT. Reviewed, Interpreted and Dictated by Paulino Schwartz MD Transcribed by Candy Yuan Authenticated and [facility]
[2023-06-05 15:45] VITALS: PULSE 79; PULSE 81
[2023-06-05] MEDS: ALBUTEROL 0.083% 2.5 MG/3 ML NEB IH (15:45)
== END 2023-06-05 23:59 | disposition home or self-care (01) ==
LOC: RAD 14:27
PROVIDERS: PCP Family Medicine; Visit Provider Internal Medicine Pulmonary Disease
DX: F17.210 Nicotine dependence, cigarettes, uncomplicated (principal); Z12.2 Encounter for screening for malignant neoplasm of respiratory organs; R06.09 Other forms of dyspnea
CPT/HCPCS: 71271; 94060; 94618; 94640; 94726; 94729

== ENCOUNTER 2024-05-15 06:00 | Day surgery (SDC) | payer BC, SELFPAY ==
[2024-05-13 14:01] VITALS: BMI 19.5
--- NOTE | 2024-05-15 07:37 | EXP.HP ---
History of Present Illness *Admission Date: 05/15/24 *Reason for visit:: Positive Cologuard *History of present illness: Mr. Flores is a 59-year-old gentleman who is here for positive Cologuard/initial screening colonoscopy. The examination is deemed medically necessary for screening colonoscopy. The patient has been seen, interviewed and examined prior to the procedure by both myself and the anesthesia provider. [facility] Disclaimer: The information contained in this section may have been updated after the patient was seen, as this information can be updated by other users. Medical History (Updated 05/15/24 @ 07:41 by Jacek Thomas II, MD) History of COVID-19 Hypertension Encounter for screening for malignant neoplasm of lung Pulmonary emphysema Dyspnea on exertion Abnormal findings diagnostic imaging of heart and coronary circulation Multi-vessel coronary artery stenosis Dyspnea Abnormal electrocardiogram [ECG] [EKG] Typical angina Essential hypertension Surgical History History of open heart surgery Family History Other Family history of cancer Family history of diabetes mellitus Family history of heart disease Social History (Updated 05/13/24 @ 13:58 by Lisseth Kang RN) Smoking Status: Current every day smoker smoking status stop date: 03/29/23 alcohol intake: current current occupational status: employed Travel in the last 8 weeks: None Have you lived/traveled outside [place] in past 30 days?: No Contact w/someone who lives/traveled outside US past 30 days?: No Exposure to someone with infectious disease in past 14 days?: No Do you have a fever (greater than 100.4 F or 38 C)?: No Have you tested positive for COVID-19: No Exposed to someone with COVID-19 in past 14 days?: No Do you have a sore throat?: No Do you have a cough?: No Do you have any weakness?: No Are you experiencing any nausea/vomitting?: No Do you have any diarrhea?: No Are you experiencing any unusual bleeding?: No Do you have any muscle aches/pain?: No Do you have any abdominal pain?: No Are you experiencing loss of taste or smell?: No Other Medical History Have you received the Flu Vaccine for this season: No Have you received the Pneumonia Vaccine: No Review of Systems Review of Systems Review of systems (narrative): Negative *Cardiovascular Comments: Negative *Gastrointestinal Comments: Negative *Genitourinary Comments: Negative *Musculoskeletal Comments: Negative *Neurologic Comments: Negative Meds Home Medications and Allergies Home Medications ?Medication ?Instructions ?Recorded ?Confirmed ?Type aspirin 81 mg tablet,delayed 81 mg PO DAILY #90 tabs 12/14/22 05/13/24 Rx release cholecalciferol (vitamin D3) 25 125 mcg PO DAILY 01/03/23 05/13/24 History mcg (1,000 unit) capsule nitroglycerin 0.4 mg sublingual 0.4 mg sublingual Q5M PRN chest 01/03/23 05/13/24 Rx tablet pain #25 tabs isosorbide mononitrate 30 mg 30 mg PO DAILY 03/14/23 05/13/24 History tablet,extended release 24 hr nicotine See Rx Instructions transdermal 03/14/23 05/13/24 Rx 21mg/24hr-14mg/24hr-7mg/24hr daily .COMPLEX #56 patches transderm patches,sequentl metoprolol tartrate 75 mg tablet 75 mg PO BID #60 tabs 01/14/24 05/13/24 Rx sodium,potassium,mag sulfates 17.5 See Rx Instructions PO .COMPLEX 04/30/24 05/13/24 Rx gram-3.13 gram-1.6 gram oral soln #354 mL (Suprep Bowel Prep Kit) fexofenadine 180 mg tablet 180 mg PO DAILY 05/13/24 05/13/24 History losartan 25 mg tablet 25 mg PO DAILY 05/13/24 05/13/24 History New Prescriptions to Start Prescriptions: Allergies Allergy/AdvReac Type Severity Reaction Status Date / Time tolmetin (From Tolectin) Allergy Severe Hives Verified 05/13/24 13:49 tramadol Allergy Severe Anaphylaxis Verified 05/13/24 13:49 neosporin Allergy Mild Unknown Uncoded 05/16/23 13:44 allergy reaction Exam Data for Last 24 hours I & O for Last 24 hours: Intake & Output 05/12/24 05/13/24 05/14/24 05/15/24 23:59 23:59 23:59 23:59 Weight 140 lb *Routine HEENT Exam Head: Present normocephalic Eye: Present EOMI and PERRL ENT: Present mucous membranes moist *Routine Neck Exam Neck: Present supple *Routine Respiratory Exam Respiratory: Present CTA bilaterally *Routine Cardiovascular Exam Cardiovascular: Present RRR *Routine Abdominal Exam Abdominal: Present soft and normoactive bowel sounds; Absent tenderness *Routine Rectal Exam Rectal:: deferred *Routine Genitalia Exam Genitalia:: deferred *Routine Extremities Exam Extremities: Absent cyanosis, clubbing or edema *Routine Skin Exam Skin: Present warm; Absent rash *Routine Neurological Exam Neurological: Present alert and oriented X3 Assessment and Plan *Assessment and plan (1) Positive colorectal cancer screening using Cologuard test: Status: Acute Category: Medical Code(s): R19.5 - Other fecal abnormalities Plan A/P: 1. Positive Cologuard/screening colonoscopy is the preprocedural diagnosis. The patient will be anesthetized/sedated using MAC sedation. The patient has been seen and examined. Cardiac and lung assessment prior to the examination is stable. Proceed with planned screening colonoscopy
--- NOTE | 2024-05-15 07:41 | HMH.PROCNOTE ---
[facility] Procedure Note Date: 05/15/24 Time: 08:21 Procedure Note:: Colonoscopy Procedure Report: Colonoscopy with EMR (endoscopic mucosal resection?submucosal injection, snare cautery and Endo Clip placement) and cold snare polypectomy Endoscopist: Jacek Thomas II, MD Referring physician: Sen Chavarria MD Date of Procedure: May 15, 2024 Equipment: Olympus 190 variable stiffness pediatric colonoscope Sedation: MAC sedation Indication: Mr. Flores is a 59-year-old gentleman who is here for screening colonoscopy secondary to a positive Cologuard. He reports no abdominal pain, weight loss, change in his bowel habits or family history of colon cancer. He reports some occasional spotting of blood on the toilet tissue which she attributes to hemorrhoids. This is his first colonoscopy. Procedure: Prior to the procedure, a history and physical exam was performed, and patient's medications and allergies were reviewed. The risks, benefits and alternatives of the sedation and procedure were discussed with the patient. All questions were answered and informed consent was obtained. The patient was brought to the procedure room. Patient identification and proposed procedure were verified by the physician and the nurse. The patient was placed in a left lateral decubitus position and the scope was passed under direct vision. Throughout the procedure, the patient's blood pressure, pulse, and oxygen saturations were monitored continuously. The colonoscopy was accomplished without difficulty. The patient tolerated the procedure well. Findings: On digital rectal examination there was normal rectal tone. There were no external hemorrhoids. The prostate was 2+, smooth, soft, symmetric without nodules. The colonoscope was introduced through the anal canal to the rectum and advanced to the cecum. The ileocecal valve and appendiceal orifice were identified. The scope was advanced a short distance into the ileum which appeared grossly normal. The scope was then withdrawn into the colon. There were a total of 29 polyps identified and removed (cecum x 1 (6 mm), ascending x 3 (10, 12 and 21 mm), transverse x 2 (7 and 10 mm), descending x 10 (ranging from 4 to 12 mm), sigmoid x 3 (10, 14 and 15 mm) and rectosigmoid x 10 (ranging in size from 5 to 10 mm)). These were primarily removed with cold snare polypectomy. The largest ascending polyp (21 mm) was injected at the base with Eleview and saline to lift the polyp and this was removed via snare cautery with eventual Endo Clip closure of this polyp (EMR resection). The 2 larger sigmoid polyps that were pedunculated were removed via snare cautery. Diminutive polyps under 5 mm were sometimes recognized but not removed because of the number and volume of polyps. He will need close surveillance. There were scattered diverticuli throughout the descending and sigmoid colon (LEFT colon). The rectum itself was normal. Upon retroflexion within the rectum there were grade 2 internal hemorrhoids. The preparation was excellent throughout with [place] Preparation Score of 9. The cecal time was 27 minutes. Impression: 1. Colonic polyps x 29 with some larger advanced adenomatous polyps 2. Pandiverticulosis 3. Grade 2 internal hemorrhoids Plan: I will follow-up the polyp histology. The patient did have several advanced adenomatous polyps and multiple polyps (i.e. polyposis). He will need close interval follow-up and I would recommend 1 year surveillance. I would encourage psyllium bulking fiber supplementation on a maintenance basis.
[2024-05-15 07:44] VITALS: O2SAT 100
--- NOTE | 2024-05-15 08:01 | P.PNANES_ITS ---
[facility] Disclaimer: The information contained in this section may have been updated after the patient was seen, as this information can be updated by other users. Medical History (Updated 05/15/24 @ 07:41 by Jacek Thomas II, MD) History of COVID-19 Hypertension Encounter for screening for malignant neoplasm of lung Pulmonary emphysema Dyspnea on exertion Abnormal findings diagnostic imaging of heart and coronary circulation Multi-vessel coronary artery stenosis Dyspnea Abnormal electrocardiogram [ECG] [EKG] Typical angina Essential hypertension Surgical History History of open heart surgery Family History Other Family history of cancer Family history of diabetes mellitus Family history of heart disease Social History (Updated 05/13/24 @ 13:58 by Lisseth Kang, SEAN) Smoking Status: Current every day smoker smoking status stop date: 03/29/23 alcohol intake: current substance use type: denies use current occupational status: employed Travel in the last 8 weeks: None [facility] Anesthesia Checklist Patient Identification Patient Identification: Verbal (Name & ) Structural Data Admitted From: Home Planned Operative Procedure/s: colonoscopy Consent for Planned Operative Procedure(s) Verified: Yes NPO Status Verified Time NPO: 00:00 Additional verifications Anesthesia Reactions: No Hx Blood Transfusions: No Blood Transfusion Reaction: No Airway Assessment Mallampati Score:: Class II C-Spine Mobility Assessed: Yes TMJ Mobility Assessed: Yes Dentition: Good Dentition Neurological Assessment Level of Consciousness: Awake, Alert and Appropriate Anesthesia Plan Anesthesia Risk discussed: Yes Anesthesia Plan: Verified ASA Class: II Anesthesia Type: MAC
[2024-05-15] MEDS: EPINEPHrine 0.1 MG/ML 10ML SYRINGE (CRASH CART) 1 MG (08:23)
[2024-05-15 08:28] VITALS: BP 121/66; PULSE 65; RESP 18; TEMP 36.1; O2SAT 97
[2024-05-15 08:34] VITALS: BP 85/58; PULSE 94; RESP 16; TEMP 36.1; O2SAT 96
[2024-05-15 08:38] VITALS: BP 114/54; PULSE 18; PULSE 78; O2SAT 98
[2024-05-15 08:48] VITALS: BP 133/70; PULSE 79; RESP 18; O2SAT 98
== END 2024-05-15 09:04 | disposition home or self-care (01) ==
PROVIDERS: PCP Family Medicine; Visit Provider Internal Medicine Gastroenterology
PROC: 0DJD8ZZ Inspection of Lower Intestinal Tract, Via Natural or Artificial Opening Endoscopic (ICD-10-PCS; CPT 45378; principal; 2024-05-15 07:30)
DX: K63.5 Polyp of colon (principal); D12.6 Benign neoplasm of colon, unspecified; K57.30 Diverticulosis of large intestine without perforation or abscess without bleeding; K64.1 Second degree hemorrhoids; R19.5 Other fecal abnormalities; Z12.11 Encounter for screening for malignant neoplasm of colon
CPT/HCPCS: 45385; 45390; J0171

== ENCOUNTER 2024-08-06 09:32 | Outpatient (CLI) | payer BC, SELFPAY ==
--- OUTSIDE RECORDS SUMMARY | 2024-07-17 10:00 | XMS_ITS ---
Author Organization [facility] Address [address] [place] [id number] Care Team Providers Care Truck Jumper Name Role Phone Karthikeyan Clay Primary Care Provider Jaycee Chavarria Unavailable [phone] Allergies Allergen (clinical drug ingredient) Drug/Non Drug Allergy documented on EMR Reaction Allergy Type Onset Date Status tolmetin Tolmetin hives Drug Allergy Active REASON FOR VISIT 2 week ckup Medications Medication SIG (Take, Route, Frequency, Duration) Notes Start Date End Date Status Vitamin B-12 1000 MCG 1 tablet Orally On ce a day for 30 day(s) Active Isosorbide Dinitrate 30 MG 1 tablet Oral ly once daily for 90 days Active Vitamin D3 50 MCG (2000 UT) 1 tablet Ora lly Once a day for 30 day(s) Active Losartan Potassium 25 MG 1 tablet Orally Two times a day for 30 days Active Spiriva Respimat 2.5 MCG/ACT 1 puffs Inhalation Once a day Active Dulera 200-5 MCG/ACT 2 puffs Inhalation once a day Active Albuterol Sulfate HFA 108 (90 Base) MCG/ACT 1 puff as needed Inhalation every 6 hrs, prn 11/01/2022 Active Aspirin 81 81 MG 1 tablet Orally Once a day for 90 days 07/23/2023 Active Esthela Allergy 180 MG 1 tablet Orally O nce a day for 30 day(s) Active Atorvastatin Calcium 80 MG 1 tablet Oral ly At Bed Time for 90 days Active Metoprolol Tartrate 75 MG 1 tablet with food Orally Twice a day for 90 days Active Vital Signs Weight 146.0 lbs 07/17/2024 Blood pressure systolic 120 mm Hg 07/18/19 25 Blood pressure diastolic 80 mm Hg 025 Heart Rate 81 /min 07/17/2024 Height 70 in 07/17/2024 BMI 20.95 kg/m2 07/17/2024 Encounters Encounter Location Date Provider Diagnosis Emm[place] [address] [facility] [address] [facility] [address] [place], [place] [id number] 07/17/2024 Jaycee Chavarria S/P CABG x 2 Z95.1 ; HTN (hypertension) I10 ; Tobacco use Z72.0 ; COPD, moderate J44.9 and BMI 20.0-20.9, adult Z68.20 Assessments Encounter Date Diagnosis (ICD Code) Assessment Notes Treatment Notes Treatment Clinical Notes Section Notes 07/17/2024 S/P CABG x 2 (ICD-10 - Z95.1) 07/17/2024 HTN (hypertension) (ICD-10 - I10) 07/17/2024 Tobacco use (ICD-10 - Z72.0) Advised to STOP SMOKING 07/17/2024 COPD, moderate (ICD-10 - J44.9) 07/17/2024 BMI 20.0-20.9, adult (ICD-10 - Z68.20) Plan Of Treatment Treatment Notes Assessment Notes Tobacco use Advised to STOP SMOK ING Next Appt Details Follow Up: 4 Months, Reason: Provider Name:Jaycee Sahni er, 11/17/2024 01:30:00 PM, [address] [facility] [address] [facility], [address], [place], [place], [id number], Progress Notes * OLAYINKA FLORESDOB:1965 (59 yo M)Acc No.[id number]:07/17/2024 Progress Notes Patient: OLAYINKA STALEY Provider: Jaycee Chavarria M.D. :1965 A ge:59 Y S ex:Male Date:07/17/2024 Address:[address] [place] [address] [place] Will [phone] Pcp:Karthikeyan Clay Subjective: * Chief Complaints: * 1 . 2 week ckup. * HPI: C ardiology: The patient is here today for a 2 week follow up on Hypertension. Pt states the losartan was increased to twice a day. Pt states he is tolerating the increase well and denies any medication side effects. Pt states he does not check his BP at home. Pt is not fasting. Started back smoking 1ppd. Denies : Chest Pain. D enies : Short of Breath. D enies : Dizziness. D enies : Palpitations. * ROS: D ERMATOLOGY: no R archie. n o H toño. G ASTROENTEROLOGY: no N ausea. n o V omiting. n o D iarrhea.? U ROLOGY: no D ifficulty urinating. n o B lood in urine. * Medical History: M edical History Verified. * Surgical History: C ABG x2, Dr. Griggs 01/08/2023, Colonoscopy Polyps Removed - Repeat in 11/2024. * Hospitalization/Major Diagno stic Procedure: C ut on Head- [facility] ER 2008, Double Pneumonia- [facility] 09/17-09/20/2017. * Family History: F ather: alive 72 yrs, coronary artery disease. M other: alive 67 yrs. P aternal Grand Father: . P aternal Grand Mother: . M aternal Grand Father: . M aternal Grand Mother: unknown. S iblings: cancer, breast. 1 son(s) , 1 daughter(s) . .? * Social History: C URRENT TOBACCO USE S moking Status: Patient does smoke, packs per day: 1, number of cigarettes per day: 20, Since age of: 14, Smoking preference: cigarettes. C affeine: yes, frequency:daily. Exercise: no. Home smoke detector use: no. Marital Status: . New since last visit: none. Occupation: yes. Past smoking status: no. Occup. exposure: none. Recreational drug use: no. Alcohol: socially, Type: , Frequency: ,Years: , Determination:. Sexually active: yes. Travel ouside [place]: no. * Medications: T aking Vitamin B-12 1000 MCG Tablet 1 tablet Orally Once a day , Taking Vitamin D3 50 MCG (2000 UT) Tablet 1 tablet Orally Once a day , Taking Atorvastatin Calcium 80 MG Tablet 1 tablet Orally At Bed Time , Taking Metoprolol Tartrate 75 MG Tablet 1 tablet with food Orally Twice a day , Taking Aspirin 81 81 MG Tablet Delayed Release 1 tablet Orally Once a day , Taking Spiriva Respimat 2.5 MCG/ACT Aerosol Solution 1 puffs Inhalation Once a day , Taking Dulera 200-5 MCG/ACT Aerosol 2 puffs Inhalation once a day , Taking Albuterol Sulfate HFA 108 (90 Base) MCG/ACT Aerosol Solution 1 puff as needed Inhalation every 6 hrs, prn , Taking Esthela Allergy 180 MG Tablet 1 tablet Orally Once a day , Taking Isosorbide Dinitrate 30 MG Tablet 1 tablet Orally once daily , Taking Losartan Potassium 25 MG Tablet 1 tablet Orally Two times a day , Discontinued Mucinex DM 30-600 MG Tablet Extended Release 12 Hour 1 tablet as needed Orally Two times a day , Discontinued Nicotine 21 MG/24HR Patch 24 Hour 1 patch to skin Transdermal Once a day , Medication List reviewed and reconciled with the patient * Allergies: T olmetin: hives. Objective: * Vitals: W t: 146.0, Temp: 98.1, BP: 120/80, HR: 81, O2 Sat: 97% on RA, Nurse: GRETCHEN, Ht: 70, BMI:20.95. * Examination: G eneral Examination: General Appearance: N AD. HEENT: u nremarkable. Wearing hearing aids now. Oral cavity: n o lesions, mucosa moist and WNL, no erythema. Neck: s upple, no lymphadenopathy, no carotid bruits. Chest: n ormal shape and expansion, midsternal CABG scar.? Heart: R SR, no ectopics. Lungs: c lear to auscultation. Abdomen: soft and nontender, no organomegaly or masses.? Neurologic Exam: I ntact, gait normal. Skin: n ormal, no rash. Peripheral pulses: n ormal. Extremities: n o leg edema. Assessment: * Assessment: 1. H TN (hypertension) - I10 (Primary) 2 . S /P CABG x 2 - Z95.1 3 . T obacco use - Z72.0 4 . C OPD, moderate - J44.9 5 . B NC 20.0-20.9, adult - Z68.20 Plan: * Treatment: * Procedure Codes: G 8950 PREHTN/HTN BP DOC INDCD F/U DOC, G8752 MOST RECENT SYSTOLIC BP < 140MM HG, G8754 MOST RECENT DIASTOLIC BP < 90MM HG, G8420 BMI<30 AND >=22 CALC & DOCU, G0030 PET MYOCARD IMAG FLW PREV PET; 1, 3017F COLORECTAL CA SCREEN DOC REV * Preventive Medicine: Screening / Special Tests: C olonoscopy c olonoscopy performed by Dr. Thomas 05/15/2024 following a positive Cologuard, reveals , multiple polyps, pandiverticulosis, hemorrhoids, repeat 1 year. * Follow Up: 4 Months * Billing Information: * Visit Code: 16496 Office Visit, Est Pt., Level 3. * Procedure Codes: G8950 PREHTN/HTN BP DOC INDCD F/U DOC. G8752 MOST RECENT SYSTOLIC BP < 140MM HG. G8754 MOST RECENT DIASTOLIC BP < 90MM HG. G8420 BMI<30 AND >=22 CALC & DOCU. G0030 PET MYOCARD IMAG FLW PREV PET; 1. 3017F COLORECTAL CA SCREEN DOC REV. * Electronic signature of Jaycee Chavarria MD on 08/06/2024 at 09:36 AM EDT Sign off status: Pending * Provider: Jaycee Chavarria M.D. Date: 0 07/17/2024 Generated for Iraida jiang/Colette/Bibiitting on: 0 08/06/2024 09:36 AM EDT History and Physical Notes * HPI (History of Present Illness) Category Sub-Category Detail Notes Category Not es Cardiology Short of Breath Chest Pain Palpitations Dizziness Examination Category Sub-Category Detail Notes Category Not es General Examination HEENT: unremarkable . Wearing hearing aids now Heart: RSR, no ectopics Lungs: clear to auscultatio n Abdomen: soft and nontender, no organomegaly or masses Extremities: no leg edema General Appearance: NAD Skin: normal, no rash Neurologic Exam: Intact, gait normal Neck: supple, no lymphaden opathy, no carotid bruits Oral cavity: no lesions, mucosa m oist and WNL, no erythema Peripheral pulses: normal Chest: normal shape and exp ansion, midsternal CABG scar
--- OUTSIDE RECORDS SUMMARY | 2024-07-27 14:48 | XMS_ITS ---
Author Organization [facility] Address [address] [place] [id number] Care Team Providers Care Firer Marine Name Role Phone Karthikeyan Clay Primary Care Provider [phone] Results Component Value Reference Range Notes CT chest with enhanced contr ast Reviewed date:07/30/2024 09:00:56 AM Interpretation:cancelled, incorrect order Performing Lab: Notes/Report: cancelled, incorrect order REASON FOR VISIT due for screening Encounters Encounter Location Date Provider Diagnosis [facility] [address] [facility] 36 [facility] [address] [place] [id number] 07/27/2024 Karthikeyan Clay Tobacco abuse Z72.0 Assessments Encounter Date Diagnosis (ICD Code) Assessment Notes Treatment Notes Treatment Clinical Notes Section Notes 07/27/2024 Tobacco abuse (ICD-10 - Z72.0) Plan Of Treatment Next Appt Details Provider Name:Jaycee Sahni er, 11/17/2024 01:30:00 PM, [address] [facility] 36 [facility], [address], [place], [id number], Progress Notes * OLAYINKA FLORESDOB:1965 (59 yo M)Acc No.[id number]:07/27/2024 Patient: KEY STALEYREY :1965 A ge:59 Y S ex:Male Address:[address] [place], [place] [address] [address] Subjective: * Chief Complaints: * D ue for screening * Medical History: * Surgical History: * Hospitalization/Major Diagno stic Procedure: * Medications: Objective: * Vitals: * Physical Examination: Assessment: * Assessment: [facility]. [facility] (Primary) Plan: * Treatment: * Procedure Codes: * true * Date: Generated for Iraida jiang/Colette/Chandni on: 0 08/06/2024 09:36 AM EDT
--- OUTSIDE RECORDS SUMMARY | 2024-07-29 09:30 | XMS_ITS ---
Author Organization [facility] Address [address] [facility] [address] [facility] [address] [place] [id number] Care Team Providers Care Custom Leather Products Maker Name Role Phone [place], Karthikeyan Primary Care Provider REASON FOR VISIT CT chest with enhanced contrast Encounters Encounter Location Date Provider Diagnosis [facility] [address] [facility] [address] [facility] [address] [place] [id number] 07/29/2024 Karthikeyan Clay Screening for lung cancer Z12.2 and History of tobacco use Z87.891 Assessments Encounter Date Diagnosis (ICD Code) Assessment Notes Treatment Notes Treatment Clinical Notes Section Notes 07/29/2024 Screening for lung cancer (ICD-10 - Z12.2) 07/29/2024 History of tobacco use (ICD-10 - Z87.891) Plan Of Treatment Pending Test Test Name Order Date CT Scan : Chest, low dose 07/29/2024 Next Appt Details Provider Name:Jaycee Sahni er, 11/17/2024 01:30:00 PM, [address] [place] [address] [facility], [address], [place], [place], [id number], Progress Notes * EDUARDO KEYCHASEDOB:1965 (59 yo M)Acc No.[id number]:07/29/2024 Patient: OLAYINKA STALEY :1965 A ge:59 Y S ex:Male Address:[address] [place], [place] [address] [address] Subjective: * Chief Complaints: * C T chest with enhanced contrast * Medical History: * Surgical History: * Hospitalization/Major Diagno stic Procedure: * Medications: Objective: * Vitals: * Physical Examination: Assessment: * Assessment: 1. S creening for lung cancer - Z12.2 (Primary) 2 . H istory of tobacco use - Z87.891 Plan: * Treatment: 2. H istory of tobacco use I maging: CT Scan : Chest, low dose * Procedure Codes: * true * Date: Generated for Iraida jiang/Colette/eTjohnsmitting on: 0 08/06/2024 09:36 AM EDT
--- NOTE | 2024-08-06 09:34 | CT_ITS ---
FINAL REPORT TECHNIQUE: Thin section axial images were obtained from the lung apices to the upper abdomen by computed tomography. Reformatted images were obtained and reviewed. This study was performed with techniques to keep radiation doses al low as reasonably achievable (ALARA). Individualized dose reduction techniques using automated exposure control or adjustment of mA and/or kV according to the patient's size were employed. CLINICAL HISTORY: SCREENING smoker 1 ppd x 45 years COMPARISON: 06/05/2023 FINDINGS: CHEST CT LOW DOSE 59-year-old male, current smoker, 87-nerf-mrxl history CTDI vol (mGy): 2.90 DLP (mGy-cm): 113.33 There is no axillary adenopathy. There is no mediastinal or hilar mass or adenopathy. The heart is normal in size. There is no pericardial or pleural effusion. Lung window images demonstrate multiple nodules. There is a 4 mm nodule in the right upper lobe, seen on the prior exam of 2023, which is now partially calcified. This is best seen on image #28 of series 4. There are multiple up to 5 mm in size left lower lobe nodules, seen on images #42 of series 4, 57 of series 4, and 54 of series 4, which are all stable when compared to the prior exam. There are several right upper lobe 2 mm nodules, best seen on images #27 through 32 of series 4, also stable. No new nodules or masses are identified. Limited images of the upper abdomen are unremarkable. IMPRESSION: Lung-RADS category 2. Recommend 12 month follow up low dose chest CT. Reviewed, Interpreted and Dictated by Paulino Schwartz MD Transcribed by Candy Yuan Authenticated and . [facility]
--- OUTSIDE RECORDS SUMMARY | 2024-08-06 09:36 | XMS_ITS | Encounter Summary ---
Author Organization [facility] Address [address] [place] [address] Care Team Providers Care Biotech Production Specialist Name Role Phone Kg Chavarria MD Primary Care Provider [phone] Bakari Williamson MD Unavailable [phone] Reason for Visit * Reason Comments Med Refill Encounter Details Date Type Department Care Team (Late st Contact Info) Description 06/06/2023 Refill [facility] [address] [facility] [address] [place] [phone] Charlie Vela, PA [address] [facility] [address] [place] [address] Social History Tobacco Use Types Packs/Day Years Used Date Smoking Tobacco: Every Day Cigarettes 1.5 40 Smokeless Tobacco: Never Comments:Currently 4-5 cigar ettes daily Alcohol Use Standard Drinks/Week Comments Yes 24 (1 standard drink = 0.6 oz pu re alcohol) case or more per week Humiliation, Afraid, Rape, and Kick questionnair e Answer Date Recorded Within the last year, have y ou been afraid of your partner or ex-partner? No 01/09/2023 Within the last year, have y ou been humiliated or emotionally abused in other ways by your partner or ex-partner? No Within the last year, have y ou been kicked, hit, slapped, or otherwise physically hurt by your partner or ex-partner? No 01/09/2023 Within the last year, have y ou been raped or forced to have any kind of sexual activity by your partner or ex-partner? No 01/09/2023 Hunger Vital Sign Answer Date Recorded Within the past 12 months, y ou worried that your food would run out before you got the money to buy more. Never true 01/10/20 23 Within the past 12 months, t he food you bought just didn't last and you didn't have money to get more. Never true 01/09/2023 PRAPARE - Transportation Answer Date Re corded In the past 12 months, has l ack of transportation kept you from medical appointments or from getting medications? No 12/21 In the past 12 months, has l ack of transportation kept you from meetings, work, or from getting things needed for daily living? No 01/09/2023 Housing Stability Vital Sign Answer Kailash e Recorded In the last 12 months, was t here a time when you were not able to pay the mortgage or rent on time? No 01/09/2023 In the last 12 months, how many places have you lived? 1 01/09/2023 In the last 12 months, was t here a time when you did not have a steady place to sleep or slept in a retirement (including now)? No 01/09/2023 CAGE ASSESSMENT Answer Date Recorded Cage unable to access Not on file 01/14/2023 Cage max number of drinks Not on file 2022 Cage Beverages a week Not on file 01/14/2023 Have you ever felt you should CUT down on your d rinking? 0 01/14/2023 Have you been ANNOYED by people criticizing your drinking? 0 01/14/2023 Have you felt GUILTY about your drinking? 0 01/14/2023 Have you had a drink first t carmen in the morning (EYE-BRICK PITCHER) to steady your nerves or to get rid of a hangover? 0 01/14/2023 CAGE Questionnaire Score 0 023 Utilities Answer Date Recorded In the past 12 months has th e [employer], gas, oil, or water company threatened to shut off services in your home? No 01/09/2023 Sex and Gender Information Value Date Recorded Sex Assigned at Male 01/08/2023 1:46 PM EST Legal Sex Male 6:58 PM EDT Gender Identity Male 01/08/2023 1:46 PM EST Sexual Orientation Not on file Occupation Industry Job Start Date Job End Date Employed [employer] Not on file Not on file Not on file documented as of this encounter Plan of Treatment Not on file documented as of this encounter Visit Diagnoses Not on filedocumented in this encounter Additional Health Concerns Infection Onset Date Last Indicated Resolved Time MRSA 01/09/2023 01/09/2023 Assessment Noted Time A fall risk assessment has been complete d for the patient 02/15/2023 11:37 AM EST A Body Mass Index follow-up plan has been documented for the patient 02/15/2023 12:22 PM EST documented as of this encounter Care Teams Biotech Production Specialist Relationship Specialty Start Date End Date Kg Chavarria MD [address] [facility] [address] [address] PCP - General 12/25/22 Bakari Williamson MD [address] [facility] [address] [place] [address] Referring Physician 01/02/23 documented as of this encounter
--- OUTSIDE RECORDS SUMMARY | 2024-08-06 09:36 | XMS_ITS | Clinical Summary ---
Author Organization [facility] Address [address] [place] [address] Care Team Providers Care External Grinder Tender Name Role Phone Kg Chavarria MD Primary Care Provider [phone] Bakari Williamson MD Unavailable [phone] Allergies Active Allergy Reactions Criticality Noted Date Comments Colloidal Oatmeal Swelling High 01/05/2023 Tolmetin Rash Low 01/05/2023 Tramadol Other - please docum ent in the comment field Low 01/05/2023 Syncope Rash SOB Medications albuterol 108 (90 Base) MCG/ACT inhaler if needed. 3 Active cholecalciferol (Vitamin D3) 25 MCG (1000 UT) tablet Take 1 tablet (1,000 Units) by mouth 1 (one) time each day. Active acetaminophen (Tylenol) 325 MG tablet Take 2 tablets (650 mg) by mouth every 4 (four) hours if needed for pain. 100 tablet 3 Active cyanocobalamin (Vitamin B-12) 1000 MCG tablet Take 1 tablet (1,000 mcg) by mouth 1 (one) time each day. 30 tablet 3 Active docusate sodium 100 MG capsule Take 100 mg by mouth 2 (two) times a day if needed for constipation. 20 capsule 3 Active folic acid (Folvite) 1 MG tablet Take 1 tablet (1 mg) by mouth 1 (one) time each day. 30 tablet 3 Active furosemide (Lasix) 40 MG tablet Take 1 tablet (40 mg) by mouth 1 (one) time each day. 7 tablet 3 Active nicotine (Nicoderm CQ) 14 MG/24HR patch Place 1 patch on the skin 1 (one) time each day over 24 hours. 30 patch 3 Active methocarbamol (Robaxin) 750 MG tablet Take 1 tablet (750 mg) by mouth 4 (four) times a day for 40 doses. 40 tablet 3 Active oxyCODONE (Roxicodone) 5 MG immediate release tablet Take 1 tablet (5 mg) by mouth every 4 (four) hours if needed for severe pain for up to 18 doses. 18 tablet 3 Active isosorbide mononitrate ER (Imdur) 30 MG 24 hr tablet Take 1 tablet (30 mg) by mouth 1 (one) time each day. Do not crush or chew. 30 tablet 11 3 Active Tiotropium [place] Monohydrate (Spiriva Respimat) 2.5 MCG/ACT inhaler Inhale 2 puffs 1 (one) time each day. 4 g 1 3 Active atorvastatin (Lipitor) 80 MG tablet Take 1 tablet (80 mg) by mouth every night. 30 tablet 3 3 Active EQ Aspirin Adult Low Dose 81 MG EC tablet Take 1 tablet (81 mg) by mouth 1 (one) time each day. 30 tablet 3 3 Active mometasone-formo terol (Dulera 200) 200-5 MCG/ACT inhaler Inhale 2 puffs 2 (two) times a day. Rinse mouth with water after use to reduce aftertaste and incidence of candidiasis. Do not swallow. 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 01/04/2023 Alcohol abuse 01/04/2023 Tobacco abuse 01/04/2023 Hyperlipidemia 01/04/2023 Essential hypertension 10/25/2017 3 Resolved Problems Problem Noted Date Diagnosed Date Resolved Date Macrocytosis 01/14/2023 01/20/2023 Hyponatremia 01/11/2023 01/20/2023 Hypocalcemia 01/11/2023 01/20/2023 Hypomagnesemia 01/11/2023 01/14/2023 Acute respiratory failure wi th hypoxia and hypercapnia 01/09/2023 01/20/2023 Gastric distention 01/09/2023 3 Leukocytosis 01/09/2023 01/11/2023 Overview (01/09/2023): Continue to trend Anemia 01/09/2023 01/11/2023 Overview (01/09/2023): Anticipated in postop period Trend and transfuse as necessary Immunizations Immunization Administration Dates Next Due Influenza, injectable, quadrivalent, preservativ e free 11/08/2016 Influenza, seasonal, injectable, preservative fr ee 10/30/2015 Character Booster COVID-19 Vaccine (Purple Cap) 12 + 06/19/2020,05/27/2020 Family History Medical History Relation Name Comments Diabetes Father Heart Problem Father Sudden Maternal Grandfather Heart Problem Mother Hypertension Mother Breast cancer Sister Anesthesia problems Neg Hx Malig Hyperthermia Neg Hx Relation Name Status Comments Father Maternal Grandfather Mother Sister Social History Tobacco Use Types Packs/Day Years Used Date Smoking Tobacco: Every Day Cigarettes 1.5 40 Smokeless Tobacco: Never Tobacco Cessation:Ready to Q uit: Not Asked; Counseling Given: Not Answered Comments:Currently 4-5 cigarettes daily Alcohol Use Standard Drinks/Week Comments Yes [...] place to sleep or slept in a fci (including now)? No 01/09/2023 CAGE ASSESSMENT Answer [...] drink first t carmen in the morning (EYE-REGULATORY PROCESS MANAGER) to steady your nerves or to get rid of a hangover? 0 01/14/2023 CAGE Questionnaire Score 0 023 Utilities Answer Date Recorded In the past 12 months has th e electric, gas, oil, or water company threatened to [...] file Not on file Not on file Last Filed Vital Signs Vital Sign Reading Time Taken Comments Blood Pressure 136/84 01/14/2023 7:55 AM EST Pulse 98 01/14/2023 8:49 AM EST Temperature 37 C (98.6 F) 01/14/2023 7:55 AM EST Respiratory Rate 21 01/14/2023 8:49 AM EST Oxygen Saturation 83% 01/14/2023 8:49 AM EST Inhaled Oxygen Concentration - - Weight 62.2 kg (137 lb 2 oz) 01/14/2023 6:00 AM EST Height 180.3 cm (5' 10.98 ) 01/09/2023 10:17 AM EST Body Mass Index 19.13 01/09/2023 10:17 AM EST Plan of Treatment Health Maintenance Due Date Last Done Comments [facility]-Depression Screening 1964 [facility]-HIV Screening 1964 [facility]-Hepatitis C Screening 1964 [facility]-/Child/Adol SDOH Screenings 1964 [facility]- SDOH Screenings 1982 [facility]-Adult SDOH Screenings 1982 [facility]-DTaP,Tdap,and Td Vaccine s (1 - Tdap) 1983 [facility]-Pneumococcal Vaccine: 50 + Years (1 of 2 - PCV) 1983 CT Colonography 2009 Colonoscopy 2009 FIT-DNA 2009 FIT 2009 FOBT 2009 Sigmoidoscopy 2009 [facility]-Colorectal Cancer Screening 2009 [facility]-Zoster Vaccines (1 of 2) 2014 BPD-[id number]-80 Vaccine (3 - season) 2023 06/19/2020, 05/27/2020 [facility]-Influenza Vaccine (Seaso n Ended) 2024 11/08/2016, 10/30/2015 [facility]-RSV Vaccine: 60+ Years o r (1 - 1-dose 75+ series) 2039 HPV Vaccines Aged Out No longer eligi ble based on patient's age to complete this topic [facility]-HIB Vaccines Aged Out No longer e ligible based on patient's age to complete this topic [facility]-Hepatitis A Vaccines Aged Out No longer eligible based on patient's age to complete this topic [facility]-IPV Vaccines Aged Out No longer e ligible based on patient's age to complete this topic [facility]-Rotavirus Vaccines Aged Out No lo nger eligible based on patient's age to complete this topic Additional Health Concerns Infection Onset Date Last Indicated MRSA 01/09/2023 01/09/[address] [place] [address] [address] Advance Directives * Full Code (Latest Code Status on File) Date Activated Date Inactivated Comments 01/08/2023 11:16 PM 01/14/2023 6:30 PM Question Answer Comments Patient has decision-making capacity? Yes Care Teams External Grinder Tender Relationship Specialty Start Date End Date Kg Chavarria MD [address] [facility] [place] [address] PCP - General 12/25/22 Bakari Williamson MD [address] [place] [address] Referring Physician 01/02/23
--- OUTSIDE RECORDS SUMMARY | 2024-08-06 09:36 | XMS_ITS | Clinical Summary ---
Author Organization [facility] Address [address] [place], [place] [address] Phone [email or web address] Care Team Providers Care Sight Effects Specialist Name Role Phone Unavailable Primary Care Provider Unavailabl e Allergies Active Allergy Reactions Criticality Noted Date Comments Hydrocortisone Swelling High 04/09/2019 Tolmetin Rash High 04/09/2019 Tramadol High 10/18/2022 Medications metoprolol tartrate (LOPRESSOR) 50 MG tablet 08/29/2021 Active diphenhydrAMINE (BENADRYL) 25 MG capsule Take 25 mg by mouth every 6 (six) hours if needed for itching. Active atorvastatin (LIPITOR) 20 MG tablet 20 mg. 12/13/2022 Active EQ Aspirin Adult Low Dose 81 MG EC tablet Take 81 mg by mouth 1 (one) time each day. Active traZODone (DESYREL) 50 MG tablet TAKE 1 TABLET BY MOUTH NEEDED AT BEDTIME 03/26/2023 Active isosorbide mononitrate (IMDUR) 30 MG 24 hr tablet TAKE 1 TABLET BY MOUTH ONCE DAILY DO NOT CRUSH OR CHEW Active cholecalciferol (VITAMIN D-3) 25 MCG (1000 UT) tablet Take 1,000 Units by mouth once daily as needed. Active Tiotropium [place] Monohydrate 2.5 MCG/ACT aerosol solution Inhale 2 puffs once daily as needed. 01/26/2023 Active Active Problems Problem Noted Date Diagnosed Date Allergy 10/18/2022 Social History Tobacco Use Types Packs/Day Years Used Date Smoking Tobacco: Former Cigarettes Smokeless Tobacco: Never Intimate Partner Violence Answer Date R ecorded Insults You Not on file 06/04/2020 Threatens You Not on file 06/04/2020 Screams at You Not on file 06/04/2020 Physically Hurt Not on file 06/04/2020 Intimate Partner Violence Score Not on file 06/04/2020 Depression Answer Date Recorded PHQ Total Score 0 10/18/2022 Stress Answer Date Recorded Stress in your Life Not on file 12/23/2023 Dealing with Stress 3 12/23/2023 Sex and Gender Information Value Date Recorded Sex Assigned at Not on file Legal Sex Male 11:28 AM [employer] Gender Identity Not on file Sexual Orientation Not on file Last Filed Vital Signs Vital Sign Reading Time Taken Comments Blood Pressure 141/89 04/16/2023 2:47 PM EST Pulse 79 04/16/2023 2:47 PM EST Temperature 36.7 C (98 F) 04/16/2023 2:47 PM EST Respiratory Rate 12 04/10/2023 4:48 PM EST Oxygen Saturation 98% 04/16/2023 2:47 PM EST Inhaled Oxygen Concentration - - Weight 66.3 kg (146 lb 3.2 oz) 04/10/2023 4:48 P M EST Height 180.3 cm (5' 11 ) 04/10/2023 4:48 PM EST Body Mass Index 20.39 04/10/2023 4:48 PM EST Plan of Treatment Health Maintenance Due Date Last Done Comments Dental Cleaning/Exam 1965 HIV Screening 1965 Hepatitis C Screening 1964 Hep B Infection Screening - Triple Screen 1982 Pneumococcal: Ped (0 to 5 Yrs) and At-Risk Member (6 to 64 Yrs) (1 of 2 - PCV) 1983 Tetanus Diphtheria and Pertussis Immunization (1 - Tdap) 1983 Colorectal Cancer Screening 1994 Zoster Immunization (1 of 2) 2014 Annual Preventive Exam 04/09/2020 04/09/2019 Covid-19 Immunization ( - season) 2023 06/19/2020, 05/27/2020 Influenza Immunization (Season Ended) 2024 11/08/2016, 10/30/2015 HIB Immunization Aged Out No longer e ligible based on patient's age to complete this topic HPV Immunization Aged Out No longer e ligible based on patient's age to complete this topic Hepatitis A Immunization Aged Out No longer eligible based on patient's age to complete this topic Hepatitis B Immunization Aged Out No longer eligible based on patient's age to complete this topic Polio Immunization Aged Out No longer eligible based on patient's age to complete this topic Insurance OPT OUT NO COPAY NB
--- OUTSIDE RECORDS SUMMARY | 2024-08-06 09:36 | XMS_ITS | Encounter Summary ---
Author Organization [facility] Address [address] [place] [address] Care Team Providers Care Contract Driver Name Role Phone Kg Chavarria MD Primary Care Provider [phone] Bakari Williamson MD Unavailable [phone] Reason for Visit * Reason Comments Med Refill Encounter Details Date Type Department Care Team (Late st Contact Info) Description 02/02/2024 Refill [facility] [address] [facility] [address] [place] [id number] Charlie Vela, PA [address] [facility] [address] [place] [address] Social History Tobacco Use Types [...] place to sleep or slept in a halfway (including now)? No 01/09/2023 CAGE ASSESSMENT Answer [...] drink first t carmen in the morning (EYE-CASE MANAGERS) to steady your nerves or to get rid of a hangover? 0 01/14/2023 CAGE Questionnaire Score 0 023 Utilities Answer Date Recorded In the past 12 months has th e [employer], gas, oil, or water company threatened to [...] documented as of this encounter Care Teams Contract Driver Relationship Specialty Start Date End Date Kg Chavarria MD [address] [facility] [address] [address] PCP - General 12/25/22 Bakari Williamson MD [address] [facility] [address] [place] [address] Referring Physician 01/02/23 documented as of this encounter
--- OUTSIDE RECORDS SUMMARY | 2024-08-06 09:37 | XMS_ITS | Patient Health Record ---
Author Organization [facility] Address [address] [facility] [address] [place], [place] [address] Care Team Providers Care Yield Clerk Name Role Phone Karthikeyan Clay Primary Care Provider Jaycee Chavarria [phone] Allergies Allergen (clinical drug ingredient) Drug/Non Drug Allergy documented on EMR Reaction Allergy Type Onset Date Status tolmetin Tolmetin hives Drug Allergy Active Results Component Value Reference Range Notes CT chest with enhanced contr ast Reviewed date:07/30/2024 09:00:56 AM Interpretation:cancelled, incorrect order Performing Lab: Notes/Report: cancelled, incorrect order colonoscopy Reviewed date:07/29/2024 01:40:51 PM Interpretation:polyps, pandiverticulosis, hemorrhoids, repeat 1 year Performing Lab: Notes/Report: polyps, pandiverticulosis, hemorrhoids, repeat 1 year result: polyps, pandiverticulosis, hemorrhoid repeat study: 1 year P-Lipid Panel Reviewed date:09/04/2023 08:18:26 AM Interpretation:Normal Performing Lab: Notes/Report: Test performed by [facility] [facility] , [address], [place] [address] Seb Glynn MD, Oxidized Finish Plater CLIA: [id number] Cholesterol 131 <200 mg/dL Triglycerides 68 <150 mg/dL HDL Cholesterol 46 >39 mg/dL Cholesterol / HDL Ratio 2.85 0.00-4.99 Ratio Non-HDL Cholesterol 85 <130 mg/dL LDL Cholesterol (Calculation) 71 <130 mg/dL LDL Cholesterol Levels* Less than 100 mg/dL Optimal 100 to 129 mg/dL Near Optimal/ Above Optimal 130 to 159 mg/dL Borderline High 160 to 189 mg/dL High 190 mg/dL and above Very High * Categories as recommended by the 2004 ATPIII guidelines LDL/HDL Ratio 1.6 <3.3 Ratio LDL Cholesterol Patient History Test Date: 04/05/2022 LDL Results: 130 Units: mg/dL % Change: - ------- Test Date: 09/03/2023 LDL Results: 71 Units: mg/dL % Change: -45% P-Comprehensive Metabolic Pa coleman (CMP) Reviewed date:09/04/2023 08:18:26 AM Interpretation:bun 5, alk phos 131 Performing Lab: Notes/Report: Test performed by [facility] [address] [place] [address] , [address], [place] [address] Seb Glynn MD, Oxidized Finish Plater CLIA: [id number] Sodium 136 135-145 mmol/L Potassium 4.5 3.5-5.3 mmol/L Chloride 103 97-108 mmol/L CO2 25 22-32 mmol/L Glucose 92 65-99 mg/dL BUN 5 6-20 mg/dL Creatinine 0.73 0.70-1.30 mg/dL Calcium 9.1 8.6-10.4 mg/dL eGFR by Creatinine 105 >59 mL/min/1.73m2 Protein 6.7 6.0-8.3 g/dL Albumin 4.0 3.5-5.3 g/dL Alkaline Phosphatase 131 40-129 IU/L ALT (SGPT) 25 <5-55 IU/L AST (SGOT) 34 <5-46 IU/L Bilirubin, Total 0.4 <0.2-1.2 mg/dL A/G Ratio 1.5 1.1-2.5 mg/dL Cologuard Reviewed date:02/06/2024 12:31:02 PM Interpretation:Positive Performing Lab: Notes/Report: Positive Cologuard Positive P-Basic Metabolic Panel (BMP ) Reviewed date:01/08/2024 04:30:35 PM Interpretation:Na 132, bun 4 Performing Lab: Notes/Report: Test performed by [facility] [address] [place] [address] , [place] [address] Seb Glynn MD, Oxidized Finish Plater CLIA: [id number] Sodium 132 135-145 mmol/L Potassium 4.7 3.5-5.3 mmol/L Chloride 97 97-108 mmol/L CO2 24 22-32 mmol/L Glucose 83 65-99 mg/dL BUN 4 6-20 mg/dL Creatinine 0.75 0.70-1.30 mg/dL Calcium 9.1 8.6-10.4 mg/dL eGFR by Creatinine 103 >59 mL/min/1.73m2 P-Comprehensive Metabolic Pa coleman (CMP) Reviewed date:04/02/2024 11:41:39 AM Interpretation:satisfactory Performing Lab: Notes/Report: Test performed by [facility] [address] [place], [place] [address] , [address], [place] [id number] Seb Glynn MD, Oxidized Finish Plater CLIA: [id number] Sodium 136 135-145 mmol/L Potassium 5.0 3.5-5.3 mmol/L Chloride 100 97-108 mmol/L CO2 28 22-32 mmol/L Glucose 98 65-99 mg/dL BUN 5 8-23 mg/dL Creatinine 0.79 0.70-1.30 mg/dL Calcium 9.0 8.6-10.4 mg/dL eGFR by Creatinine 102 >59 mL/min/1.73m2 Protein 6.6 6.0-8.3 g/dL Albumin 3.9 3.5-5.3 g/dL Alkaline Phosphatase 72 40-129 IU/L ALT (SGPT) 15 <5-55 IU/L AST (SGOT) 22 <5-46 IU/L Bilirubin, Total 0.3 <0.2-1.2 mg/dL A/G Ratio 1.4 1.1-2.5 Medications Medication SIG (Take, Route, Frequency, Duration) Notes Start Date End Date Status Spiriva Respimat 2.5 MCG/ACT 1 puffs Inhalation Once a day Active Metoprolol Tartrate 75 MG 1 tablet with food Orally Twice a day for 90 days Active Dulera 200-5 MCG/ACT 2 puffs Inhalation once a day Active Albuterol Sulfate HFA 108 (90 Base) MCG/ACT 1 puff as needed Inhalation every 6 hrs, prn 11/01/2022 Active Atorvastatin Calcium 80 MG 1 tablet Oral ly At Bed Time for 90 days Active Losartan Potassium 25 MG 1 tablet Orally Two times a day for 90 days Active Esthela Allergy 180 MG 1 tablet Orally O nce a day for 30 day(s) Active Aspirin 81 81 MG 1 tablet Orally Once a day for 90 days 07/23/2023 Active Vitamin B-12 1000 MCG 1 tablet Orally On ce a day for 30 day(s) Active Isosorbide Dinitrate 30 MG 1 tablet Oral ly once daily for 90 days Active Vitamin D3 50 MCG (2000 UT) 1 tablet Ora lly Once a day for 30 day(s) Active Immunizations Vaccine Route Administration Date Status Comme nts xFlu shot- 6months-36 months of bvi-[id number]-trivalent Unknown 10/30/2015 Administered Tetanus Tdap-Adacel (over 7yrs) IM Intramuscular 09/28/2013 Administered Tetanus Tdap-Adacel (over 7yrs) IM Intramuscular 12/21/2023 Administered Fluzone PF Quad (6-35 months) Unknown 11/08/2016 Administered COVID 19 Pfizer Unknown 06/19/2020 Administered Problems Problem Type SNOMED Code ICD Code Onset Dates Problem Status W/U Status Risk Notes Problem Hypertension (44653078) HTN (hypertension) (I10) Active confirmed Problem Hyperlipidemia (E78.5) Active confirmed Problem 541527884 Tobacco use (Z72.0) Active confirmed Problem 4178432 Primary insomnia (F51.01) Active confirmed Problem 175582233 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) Active confirmed Problem 058164504 COPD, moderate (J44.9) Active confirmed Vital Signs Heart Rate 81 /min 07/17/2024 Blood pressure diastolic 80 mm Hg 07/17/2024 Height 70 in 07/17/2024 Blood pressure systolic 120 mm Hg 07/17/2024 Weight 146.0 lbs 07/17/2024 BMI 20.95 kg/m2 07/17/2024 Encounters Encounter [facility] Date [facility] [address] [place], [place] [id number] 12/21/2023 Jaycee Chavarria S/P CABG x 2 Z95.1 ; Tobacco use Z72.0 ; HTN (hypertension) I10 ; Hyperlipidemia E78.5 and Encounter for immunization Z23 [facility] [address] [place], [place] [id number] 03/31/2024 Jaycee Chavarria HTN (hypertension) I 10 ; S/P CABG x 2 Z95.1 ; Tobacco use Z72.0 ; Positive colorectal cancer screening using Cologuard test R19.5 and COPD, moderate J44.9 [facility] [address] [place] [id number] 06/30/2024 Jaycee Chavarria HTN (hypertension) I 10 ; S/P CABG x 2 Z95.1 ; Tobacco use Z72.0 ; Adenomatous polyp of colon, unspecified part of colon D12.6 and BMI 21.0-21.9, adult Z68.21 [facility] [address] [place] [id number] 07/04/2024 [facility] [address] [facility] [address] [place] [id number] 07/17/2024 Jaycee Chavarria S/P CABG x 2 Z95.1 ; HTN (hypertension) I10 ; Tobacco use Z72.0 ; COPD, moderate J44.9 and BMI 20.0-20.9, adult Z68.20 [facility] [address] [place], [place] [id number] 09/03/2023 Jaycee Chavarria HTN (hypertension) I 10 ; Hyperlipidemia E78.5 ; S/P CABG x 2 Z95.1 ; Tobacco use Z72.0 and Primary insomnia F51.01 [facility] [address] [place], [place] [id number] 09/04/2023 Jaycee Chavarria [facility] [address] [place], [place] [id number] 12/26/2023 [place]arthikeyan [place] [facility] [address] [place], [place] [id number] 01/08/2024 Karthikeyan [place] [facility] [address] [place], [place] [id number] 01/28/2024 Karthikeyan [place] [facility] [address] [place], [place] [id number] 02/06/2024 Jaycee Chavarria Positive colorectal cancer screening using Cologuard test R19.5 [facility] [address] [place], [place] [id number] 02/22/2024 Jaycee Chavarria [facility] [address] [place], [place] [id number] 05/22/2024 Karthikeyan [place] [facility] [address] [place], [place] [id number] 07/21/2024 Jaycee Chavarria HTN (hypertension) I 10 [facility] [address] [place], [place] [id number] 07/27/2024 Karthikeyan [place] Tobacco abuse Z72.0 [facility] [address] [place], [place] [id number] 07/29/2024 Karthikeyan [place] Screening for lung cancer Z12.2 and History of tobacco use Z87.891 [facility] [address] [place], [place] [id number] 07/29/2024 Jaycee Chavarria Assessments Encounter Date Diagnosis (ICD Code) Assessment Notes Treatment Notes Treatment Clinical Notes Section Notes 09/03/2023 HTN (hypertension) (ICD-10 - I10) 09/03/2023 Hyperlipidemia (ICD-10 - E78.5) 12/21/2023 S/P CABG x 2 (ICD-10 - Z95.1) 02/06/2024 Positive colorectal cancer screening using Cologuard test (ICD-10 - R19.5) 03/31/2024 HTN (hypertension) (ICD-10 - I10) 12/21/2023 Tobacco use (ICD-10 - Z72.0) 03/31/2024 S/P CABG x 2 (ICD-10 - Z95.1) 07/17/2024 HTN (hypertension) (ICD-10 - I10) 07/17/2024 S/P CABG x 2 (ICD-10 - Z95.1) 07/21/2024 HTN (hypertension) (ICD-10 - I10) 07/27/2024 Tobacco abuse (ICD-10 - Z72.0) 07/29/2024 History of tobacco use (ICD-10 - Z87.891) 07/29/2024 Screening for lung cancer (ICD-10 - Z12.2) 06/30/2024 HTN (hypertension) (ICD-10 - I10) 06/30/2024 S/P CABG x 2 (ICD-10 - Z95.1) 06/30/2024 Tobacco use (ICD-10 - Z72.0) 07/17/2024 Tobacco use (ICD-10 - Z72.0) Advised to STOP SMOKING 03/31/2024 Tobacco use (ICD-10 - Z72.0) 09/03/2023 S/P CABG x 2 (ICD-10 - Z95.1) 12/21/2023 HTN (hypertension) (ICD-10 - I10) 12/21/2023 Hyperlipidemia (ICD-10 - E78.5) 09/03/2023 Tobacco use (ICD-10 - Z72.0) 03/31/2024 Positive colorectal cancer screening using Cologuard test (ICD-10 - R19.5) 07/17/2024 COPD, moderate (ICD-10 - J44.9) 06/30/2024 Adenomatous polyp of colon, unspecified part of colon (ICD-10 - D12.6) 07/17/2024 BMI 20.0-20.9, adult (ICD-10 - Z68.20) 06/30/2024 BMI 21.0-21.9, adult (ICD-10 - Z68.21) 03/31/2024 COPD, moderate (ICD-10 - J44.9) 12/21/2023 Encounter for immunization (ICD-10 - Z23) 09/03/2023 Primary insomnia (ICD-10 - F51.01) Plan Of Treatment Pending Test Test Name Order Date Cardiac Stress Test Exercise Cardiolyte 09/12/2021 CT Scan : Chest, low dose 07/29/2024 Next Appt Details Provider Name:Jaycee Chatterjee Bora er, 11/17/2024 01:30:00 PM, [address], [place], [place], [id number], Insurance Providers Payer Name Payer Address Payer Phone Subscriber Number Group Number Insured Name Patient Relationship to Insured Coverage Start Date Coverage End Date [facility] [address] [place] [address] [id number] OLAYINKA SKINNER Self - patient is the insured Medications Administered Medication Instructions Date of Administration Dosage Notes Depo- Medrol 40 mg/ml 08/06/2017 1.5 mL Medical (General) History Surgical History Surgery Date(Month/Year) CABG x2, Dr. Griggs 01/08/2023 Colonoscopy Polyps Removed - Repea t in 11/2024 Hospitalization History Reason Date(Month/Year) Double Pneumonia- [facility] 0 09/17-09/20/2017 Cut on Head- [facility] 2008
--- OUTSIDE RECORDS SUMMARY | 2024-08-06 09:37 | XMS_ITS | Encounter Summary ---
Author Organization Healthcare Address [address] [place] [address] Care Team Providers Care Gta Name Role Phone John Cruz MD Primary Care Provider [phone] Kg Chavarria MD Primary Care Provider [phone] Bakari Williamson MD Unavailable [phone] Encounter Details Date Type Department Care Team (Late st Contact Info) Description 12/06/2022 Orders Only External Location [address] [place] [address] Nicole Montanez, ELECTRIC ACCOUNTING MACHINE OPERATOR [address] [place] [address] Social History Tobacco Use Types Packs/Day Years Used Date Smoking Tobacco: Every Day Alcohol Use Standard Drinks/Week Comments Yes 0 (1 standard drink = 0.6 oz pur e alcohol) Sex and Gender Information Value Date Recorded Sex Assigned at Male 01/08/2023 1:46 PM EST Legal Sex Male 6:58 PM EDT Gender Identity Male 01/08/2023 1:46 PM EST Sexual Orientation Not on file documented as of this encounter Plan of Treatment Not on file documented as of this encounter Procedures Procedure Name Priority Date/Time Associated Diagnosis Comments CT THORACIC OUTSIDE IMAGES 12/06/2022 1:55 PM EDT documented in this encounter Results * CT THORACIC OUTSIDE IMAGES (12/06/2022 1:55 PM EDT) Anatomical Region Laterality Modality Computed Tomogra phy 12/06/2022 1:55 PM EDT us Nicole Montanez ELECTRIC ACCOUNTING MACHINE OPERATOR IMG CT PROCEDURES Final Resu lt documented in this encounter Visit Diagnoses Not on filedocumented in this encounter Additional Health Concerns Infection Onset Date Last Indicated Resolved Time MRSA 01/09/2023 01/09/2023 documented as of this encounter Care Teams Gta Relationship Specialty Start Date End Date John Cruz MD [address] [facility] [address] [facility] [[email or web address] [address] [place] [address] PCP - General 07/02/20 12/24/22 Kg Chavarria MD [address] [facility] [address] [facility] [[email or web address] [address] [place] [address] PCP - General 12/25/22 Bakari Williamson MD [address] [facility] [address] [place] [address] Referring Physician 01/02/23 documented as of this encounter
== END 2024-08-06 23:59 | disposition home or self-care (01) ==
LOC: RAD 09:33
PROVIDERS: PCP Family Medicine; Visit Provider Family Medicine
DX: R91.8 Other nonspecific abnormal finding of lung field (principal); Z12.2 Encounter for screening for malignant neoplasm of respiratory organs; Z87.891 Personal history of nicotine dependence
CPT/HCPCS: 71271

== ENCOUNTER 2024-11-20 07:26 | Day surgery (SDC) | payer BC, SELFPAY ==
[2024-11-18 11:08] VITALS: BMI 20.7
--- NOTE | 2024-11-19 15:21 | EXP.HP ---
History of Present Illness *Reason for visit:: Advanced adenomatous colon polyps-polyp high-grade dysplasia *History of present illness: Mr. Flores is a 59-year-old gentleman who is here for surveillance colonoscopy secondary to a personal history of multiple adenomatous colon polyps with some advanced adenomatous colon polyps found on colonoscopy in April 2024. The patient had this initial colonoscopy after a positive Cologuard. 2 of these polyps were greater than 20 mm and several were between 10 and 20 mm in size. Most all the polyps were tubular or serrated adenomas and the sigmoid colon polyp had foci of high-grade mucosal dysplasia. The examination is deemed medically necessary for screening/surveillance colonoscopy. The patient has been seen, interviewed and examined prior to the procedure by both myself and the anesthesia provider. [facility] Disclaimer: The information contained in this section may have been updated after the patient was seen, as this information can be updated by other users. Medical History Encounter for colonoscopy due to history of colonic polyp History of COVID-19 Hypertension Encounter for screening for malignant neoplasm of lung Pulmonary emphysema Dyspnea on exertion Abnormal findings diagnostic imaging of heart and coronary circulation Multi-vessel coronary artery stenosis Dyspnea Abnormal electrocardiogram [ECG] [EKG] Typical angina Essential hypertension Surgical History History of open heart surgery Family History Other Family history of cancer Family history of diabetes mellitus Family history of heart disease Social History Smoking Status: Current every day smoker smoking status stop date: 03/29/23 alcohol intake: current substance use type: denies use current occupational status: employed Travel in the last 8 weeks?: None Have you lived/traveled outside US in past 30 days?: No Contact w/someone who lives/traveled outside US past 30 days?: No Exposure to someone with infectious disease in past 14 days?: No Do you have a fever (greater than 100.4 F or 38 C)?: No Have you tested positive for COVID-19?: No Exposed to someone with COVID-19 in past 14 days?: No Do you have a sore throat?: No Do you have a cough?: No Do you have any weakness?: No Do you have any diarrhea?: No Are you experiencing any unusual bleeding?: No Do you have any muscle aches/pain?: No Do you have any abdominal pain?: No Are you experiencing loss of taste or smell?: No Other Medical History Have you received the Flu Vaccine for this season: No Have you received the Pneumonia Vaccine: No Review of Systems Review of Systems Review of systems (narrative): Negative *Cardiovascular Comments: Negative *Gastrointestinal Comments: Negative *Genitourinary Comments: Negative *Musculoskeletal Comments: Negative *Neurologic Comments: Negative Meds Home Medications and Allergies Home Medications ?Medication ?Instructions ?Recorded ?Confirmed ?Type aspirin 81 mg tablet,delayed 81 mg PO DAILY #90 tabs 12/14/22 11/18/24 Rx release cholecalciferol (vitamin D3) 25 125 mcg PO DAILY 01/03/23 11/18/24 History mcg (1,000 unit) capsule nitroglycerin 0.4 mg sublingual 0.4 mg sublingual Q5M PRN chest 01/03/23 11/18/24 Rx tablet pain #25 tabs isosorbide mononitrate 30 mg 30 mg PO DAILY 03/14/23 11/18/24 History tablet,extended release 24 hr metoprolol tartrate 75 mg tablet 75 mg PO BID #60 tabs 01/14/24 11/18/24 Rx fexofenadine 180 mg tablet 180 mg PO NEEDED PRN Allergy 05/13/24 11/18/24 History Symptoms losartan 25 mg tablet 25 mg PO DAILY 05/13/24 11/18/24 History cyanocobalamin-liver extract tablet 1 tab PO DAILY 11/18/24 11/18/24 History New Prescriptions to Start Prescriptions: Allergies Allergy/AdvReac Type Severity Reaction Status Date / Time tolmetin (From Tolectin) Allergy Severe Hives Verified 11/20/24 08:21 tramadol Allergy Severe Anaphylaxis Verified 11/20/24 08:21 neosporin Allergy Mild Unknown Uncoded 05/16/23 13:44 allergy reaction Exam Data for Last 24 hours I & O for Last 24 hours: Intake & Output 11/16/24 11/17/24 11/18/24 11/19/24 23:59 23:59 23:59 23:59 Weight 140 lb *Routine HEENT Exam Head: Present normocephalic Eye: Present EOMI and PERRL ENT: Present mucous membranes moist *Routine Neck Exam Neck: Present supple *Routine Respiratory Exam Respiratory: Present CTA bilaterally *Routine Cardiovascular Exam Cardiovascular: Present RRR *Routine Abdominal Exam Abdominal: Present soft and normoactive bowel sounds; Absent tenderness *Routine Rectal Exam Rectal:: deferred *Routine Genitalia Exam Genitalia:: deferred *Routine Extremities Exam Extremities: Absent cyanosis, clubbing or edema *Routine Skin Exam Skin: Present warm; Absent rash *Routine Neurological Exam Neurological: Present alert and oriented X3 Assessment and Plan *Assessment and plan (1) High grade dysplasia in colonic adenoma: Status: Acute Category: Medical Code(s): D12.6 - Benign neoplasm of colon, unspecified (2) Personal history of adenomatous and serrated colon polyps: Status: Acute Category: Medical Code(s): Z86.0101 - Personal history of adenomatous and serrated colon polyps Plan A/P: 1. Colonic adenoma with high-grade dysplasia and history of multiple large and advanced adenomatous colon polyps is the preprocedural diagnosis. The patient will be anesthetized/sedated using MAC sedation. The patient has been seen and examined. Cardiac and lung assessment prior to the examination is stable. Proceed with planned screening/surveillance colonoscopy.
[2024-11-20] VITALS (7 sets, daily range): BP systolic 65–138; BP diastolic 48–82; PULSE 91–104; RESP 16–18; TEMP 36.2–36.4; O2SAT 94–97
--- NOTE | 2024-11-20 06:34 | P.PCN_ITS ---
[facility] Procedure Note Date: 11/20/24 Time: 09:32 Procedure Note:: Colonoscopy Procedure Report: Colonoscopy with cold snare polypectomy Endoscopist: Jacek Thomas II, MD Referring physician: Wilberto Chavarria MD Date of Procedure: November 20, 2024 Equipment: Olympus [id number] adult colonoscope Sedation: MAC sedation Indication: Mr. Flores is a 59-year-old gentleman who is here for surveillance colonoscopy secondary to a personal history of multiple adenomatous colon polyps with some advanced adenomatous colon polyps found on colonoscopy in April 2024. 29 colon polyps were removed at that time. The patient had this initial colonoscopy after a positive Cologuard. 2 of these polyps were greater than 20 mm and several were between 10 and 20 mm in size. Most all the polyps were tubular or serrated adenomas and the sigmoid colon polyp had foci of high- grade mucosal dysplasia. The examination is deemed medically necessary for screening/surveillance colonoscopy. Procedure: Prior to the procedure, a history and physical exam was performed, and patient's medications and allergies were reviewed. The risks, benefits and alternatives of the sedation and procedure were discussed with the patient. All questions were answered and informed consent was obtained. The patient was brought to the procedure room. Patient identification and proposed procedure were verified by the physician and the nurse. The patient was placed in a left lateral decubitus position and the scope was passed under direct vision. Throughout the procedure, the patient's blood pressure, pulse, and oxygen saturations were monitored continuously. The colonoscopy was accomplished without difficulty. The patient tolerated the procedure well. Findings: On digital rectal examination there was normal rectal tone. There were no external hemorrhoids. The colonoscope was introduced through the anal canal to the rectum and advanced to the cecum. The ileocecal valve and appendiceal orifice were identified. The scope was advanced a short distance into the ileum which appeared grossly normal. The scope was then withdrawn into the colon. There were 31 colon polyps (much smaller than previously and ranging in size from 4 to 6 mm (ascending x 6, transverse x 8, descending x 5, sigmoid x 12 and rectum x 1)). All of these were removed via cold snare polypectomy. There were scattered diverticuli throughout the colon but more predominantly in the descending and sigmoid colon. Upon retroflexion within the rectum there were grade 2 internal hemorrhoids. The preparation was excellent throughout with [place] Preparation Score of 9. The cecal time was 22 minutes. Impression: 1. Colonic polyps x 31 Plan: The patient clearly has polyposis. These polyps removed today are diminutive in size compared to what was encountered at time of colonoscopy in April 2024. On his initial colonoscopy, he had 2 polyps greater than 20 mm and a polyp with focal high-grade dysplasia (advanced adenoma involving towards colon cancer). I will follow-up the polyp histology and we will plan 1 year surveillance interval.
[2024-11-20] MEDS: LACTATED RINGERS 1000ML 1,000 ML 50 ML IV (08:20)
--- NOTE | 2024-11-20 08:47 | EXP.ANES.CKL ---
[facility] Disclaimer: The information contained in this section may have been updated after the patient was seen, as this information can be updated by other users. Medical History Encounter for colonoscopy due to history of colonic polyp History of COVID-19 Hypertension Encounter for screening for malignant neoplasm of lung Pulmonary emphysema Dyspnea on exertion Abnormal findings diagnostic imaging of heart and coronary circulation Multi-vessel coronary artery stenosis Dyspnea Abnormal electrocardiogram [ECG] [EKG] Typical angina Essential hypertension Surgical History History of open heart surgery Family History Other Family history of cancer Family history of diabetes mellitus Family history of heart disease Social History Smoking Status: Current every day smoker smoking status stop date: 03/29/23 alcohol intake: current substance use type: denies use current occupational status: employed Travel in the last 8 weeks?: None Have you lived/traveled outside US in past 30 days?: No Contact w/someone who lives/traveled outside US past 30 days?: No Exposure to someone with infectious disease in past 14 days?: No Do you have a fever (greater than 100.4 F or 38 C)?: No Have you tested positive for COVID-19?: No Exposed to someone with COVID-19 in past 14 days?: No Do you have a sore throat?: No Do you have a cough?: No Do you have any weakness?: No Do you have any diarrhea?: No Are you experiencing any unusual bleeding?: No Do you have any muscle aches/pain?: No Do you have any abdominal pain?: No Are you experiencing loss of taste or smell?: No [facility] Anesthesia Checklist Patient Identification Patient Identification: Arm Band and Verbal (Name & ) Structural Data Admitted From: Home Planned Operative Procedure/s: colonscopy Consent for Planned Operative Procedure(s) Verified: Yes Verified Documents: Surgical Consent and History and Physical NPO Status Verified Time NPO: 00:00 Additional verifications Anesthesia Reactions: No Hx Blood Transfusions: No Blood Transfusion Reaction: No Airway Assessment Mallampati Score:: Class II Dentition: Edentulous Neurological Assessment Level of Consciousness: Awake, Alert and Appropriate Hx Seizures: No Anesthesia Plan Anesthesia Risk discussed: Yes Anesthesia Plan: Verified ASA Class: III Anesthesia Type: MAC
== END 2024-11-20 10:42 | disposition home or self-care (01) ==
PROVIDERS: PCP Family Medicine; Visit Provider Internal Medicine Gastroenterology
PROC: 0DJD8ZZ Inspection of Lower Intestinal Tract, Via Natural or Artificial Opening Endoscopic (ICD-10-PCS; CPT 45378; principal; 2024-11-20 09:00)
DX: D12.2 Benign neoplasm of ascending colon (principal); D12.4 Benign neoplasm of descending colon; D12.5 Benign neoplasm of sigmoid colon; D12.3 Benign neoplasm of transverse colon; D12.8 Benign neoplasm of rectum; K57.30 Diverticulosis of large intestine without perforation or abscess without bleeding; K64.1 Second degree hemorrhoids; Z86.0101 Personal history of adenomatous and serrated colon polyps; I10 Essential (primary) hypertension; J43.9 Emphysema, unspecified; F17.200 Nicotine dependence, unspecified, uncomplicated; I25.10 Atherosclerotic heart disease of native coronary artery without angina pectoris; Z79.899 Other long term (current) drug therapy; Z88.6 Allergy status to analgesic agent; Z88.1 Allergy status to other antibiotic agents; Z88.5 Allergy status to narcotic agent
CPT/HCPCS: 45385; J1596; J2003; J2704; J7120

== ENCOUNTER 2024-12-01 14:15 | Outpatient (CLI) | payer BC, SELFPAY ==
--- OUTSIDE RECORDS SUMMARY | 2024-12-01 14:22 | XMS_ITS | Clinical Summary ---
Author Organization [facility] Address [address] [place], [place] [id number] Phone [email or web address] Care Team Providers Care It Business Analyst Name Role Phone Unavailable Primary Care Provider [...] mouth once daily as needed. 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 Gender Identity Not on file Sexual Orientation [...] Health Maintenance Due Date Last Done Comments CT Colonography 1964 Colonoscopy 1964 Colorectal Cancer Screening Combo 1964 DNA Cologuard 1964 Dental Cleaning/Exam 1964 FIT or FOBT Test 1964 HIV Screening 1964 Hepatitis C Screening 1964 Sigmoidoscopy 1964 Hep B Infection Screening - Triple Screen 1982 Pneumococcal: 50+ Years (1 o f 2 - PCV) 1983 Tetanus Diphtheria and Pertussis Immunization (1 - Tdap) 1983 Zoster Immunization (1 of 2) 2014 Annual Preventive Exam 04/09/2020 04/09/2019 Covid-19 Immunization (3 - season) 2024 06/19/2020, 05/27/2020 Influenza Immunization (#1) 2024 09/2 , 10/30/2015 HIB Immunization Aged Out No longer [...]
--- OUTSIDE RECORDS SUMMARY | 2024-12-01 14:22 | XMS_ITS | Encounter Summary ---
Author Organization Healthcare Address [address] [place] [address] Care Team Providers Care Rubbish Collector Name Role Phone Kg Chavarria MD Primary Care Provider [phone] Bakari Williamson MD Unavailable [phone] Reason for Visit * Reason Comments Med Refill Encounter Details Date Type Department Care Team (Late st Contact Info) Description 02/02/2024 Refill [facility] [address] [facility] [address] [place] [id number] Charlie Vela, PA [address] [facility] [address] [place] [address] Social History Tobacco Use Types [...] place to sleep or slept in a alf (including now)? No 01/09/2023 CAGE ASSESSMENT Answer [...] drink first t carmen in the morning (EYE-BEAD MACHINE OPERATOR) to steady your nerves or to get rid of a hangover? 0 01/14/2023 CAGE Questionnaire Score 0 023 Utilities Answer Date Recorded In the past 12 months has th e [employer], gas, oil, or water company threatened to [...] documented as of this encounter Care Teams Rubbish Collector Relationship Specialty Start Date End Date Kg Chavarria MD [address] [facility] [address] [address] PCP - General 12/25/22 Bakari Williamson MD [address] [facility] [address] [place] [address] Referring Physician 01/02/23 documented as of this encounter
--- OUTSIDE RECORDS SUMMARY | 2024-12-01 14:22 | XMS_ITS | Clinical Summary ---
Author Organization [facility] Address [address] [place] [address] Care Team Providers Care Freelance Writer Name Role Phone Kg Chavarria MD Primary Care Provider [phone] Bakari Williamson MD Unavailable [phone] Allergies Active Allergy Reactions Criticality Noted Date [...] chew. 30 tablet 11 3 Active Tiotropium [place] Monohydrate (Spiriva Respimat) 2.5 MCG/ACT inhaler Inhale [...] artery disease of n ative artery of [place] heart with stable angina pectoris 01/04/2023 Alcohol [...] Influenza, seasonal, injectable, preservative fr ee 10/30/2015 [employer] COVID-19 Vaccine (Purple Cap) 12 + 06/19/2020,05/27/2020 [...] place to sleep or slept in a residential (including now)? No 01/09/2023 CAGE ASSESSMENT Answer [...] drink first t carmen in the morning (EYE-MANAGER OF LEARNING) to steady your nerves or to get [...] 2009 [facility]-Zoster Vaccines (1 of 2) 2014 [id number] Vaccine (3 - Pfizer risk series) 07/17/2020 06/19/2020, 05/27/2020 [facility]-RSV Vaccine: 60+ Years o r (1 - Risk 60-74 years 1-dose series) 2024 [facility]-Influenza Vaccine (#1) 10/20/202411/08, 10/30/2015 HPV Vaccines Aged Out No longer eligi [...] Date Last Indicated MRSA 01/09/2023 01/09/[address] [place] [address] [address] [address] Advance Directives * Full Code (Latest Code Status on File) Date Activated Date Inactivated Comments 01/08/2023 11:16 PM 01/14/2023 6:30 PM Question Answer Comments Patient has decision-making capacity? Yes Care Teams Freelance Writer Relationship Specialty Start Date End Date Kg Chavarria MD [address] [facility] [place] [address] PCP - General 12/25/22 Bakari Williamson MD [address] [facility] [place] [address] Referring Physician 01/02/23
--- OUTSIDE RECORDS SUMMARY | 2024-12-01 14:23 | XMS_ITS | Encounter Summary ---
Author Organization Healthcare Address [address] [place] [address] Care Team Providers Care Dog Handler Name Role Phone Kg Chavarria MD Primary Care Provider [phone] Bakari Williamson MD Unavailable [phone] Reason for Visit * Reason Comments Med Refill Encounter Details Date Type Department Care Team (Late st Contact Info) Description 06/06/2023 Refill [facility] [address] [facility] [address] [place] [phone] Charlie Vela, PA [address] [facility] [address] [place] [address] Social History Tobacco Use Types [...] place to sleep or slept in a skilled nursing (including now)? No 01/09/2023 CAGE ASSESSMENT Answer [...] drink first t carmen in the morning (EYE-SENIOR TABLEAU DEVELOPER) to steady your nerves or to get rid of a hangover? 0 01/14/2023 CAGE Questionnaire Score 0 023 Utilities Answer Date Recorded In the past 12 months has th e [employer], gas, oil, or water company threatened to [...] documented as of this encounter Care Teams Dog Handler Relationship Specialty Start Date End Date Kg Chavarria MD [address] [facility] [address] [address] PCP - General 12/25/22 Bakari Williamson MD [address] [facility] [address] [place] [address] Referring Physician 01/02/23 documented as of this encounter
--- OUTSIDE RECORDS SUMMARY | 2024-12-01 14:23 | XMS_ITS | Encounter Summary ---
Author Organization Healthcare Address [address] [place] [address] Care Team Providers Care Steam Press Tender Name Role Phone John Cruz MD Primary Care Provider [phone] Kg Chavarria MD Primary Care Provider [phone] Bakari Williamson MD Unavailable [phone] Encounter Details Date Type Department Care Team (Late st Contact Info) Description 12/06/2022 Orders Only External Location [address] [place] [address] Nicole Montanez, HORSE AND WAGON DRIVER [address] [place] [address] Social History Tobacco Use Types Packs/Day Years [...] 12/06/2022 1:55 PM EDT us Nicole Montanez HORSE AND WAGON DRIVER IMG CT PROCEDURES Final Resu lt documented in this encounter Visit Diagnoses Not on filedocumented in this encounter Additional Health Concerns Infection Onset Date Last Indicated Resolved Time MRSA 01/09/2023 01/09/2023 documented as of this encounter Care Teams Steam Press Tender Relationship Specialty Start Date End Date John Cruz MD [address] [facility] [address] [facility] [address] [place] [address] PCP - General 07/02/20 12/24/22 Kg Chavarria MD [address] [facility] [address] [facility] [address] [place] [address] PCP - General 12/25/22 Bakari Williamson MD [address] [facility] [address] [place] [address] Referring Physician 01/02/23 documented as of this encounter
[2024-12-01 16:35] LABS: Blood Urea Nitrogen 5 mg/dl (9-20); Creatinine,Serum 0.80 mg/dl (0.66-1.25); Estimated Glomerular Filt Rate 99 ml/min (>60); GFR (African American) 119 ML/MIN (>60)
[2024-12-02 08:16] LABS: PSA, Free 0.80 ng/mL
== END 2024-12-01 23:59 | disposition home or self-care (01) ==
LOC: LAB 14:16
PROVIDERS: PCP Family Medicine; Visit Provider Urology
DX: N40.0 Benign prostatic hyperplasia without lower urinary tract symptoms (principal); N52.9 Male erectile dysfunction, unspecified
CPT/HCPCS: 36415; 82565; 84153; 84154; 84520